=== PATIENT | female | born 1935 | race Caucasian/White ===

== ENCOUNTER 2018-09-27 15:17 | Inpatient (IN) | payer MEDICARE, OTHER ==
[~2018-09-27] VITALS: Ht 157.5 cm; Wt 75.0 kg
--- NOTE | 2018-09-27 14:50 | NUR ---
PATIENT ARRIVED TO UNIT, ACCOMPANIED BY FAMILY, PT AMBULATES IN W/C AND TRANSFERS WITH ONE-PERSON ASSIST DUE TO WEAKNESS AND UNSTEADY GAIT. PT. ALERT AND CONFUSED, PLEASANT MOOD, NO AGGRESSION NOTED, CLOTHING LABELED AND RECORDED AND PLACED IN PATIENT ROOM. PATIENT CONFUSED AND UNABLE TO ANSWER QUESTIONS APPROPRIATELY, HOWEVER PATIENT'S DAUGHTERS ARE GOOD HISTORIANS. VITAL SIGNS MEASURED FOLLOWS: T 98.1, B/P 113/55, P 99, R 18, SPO2 95%. PATIENT WEIGHED SITTING IN DESIGNATED WHEELCHAIR ON W/C SCALE, WT 164.4 LBS. PATIENT'S WRIST WATCH SENT HOME WITH FAMILY PER FAMILY'S REQUEST. PT. ASSISTED TO DAYROOM TO JOIN PEERS, NO S/S DISTRESS.
[~2018-09-27 15:17] MED LIST: ZINC-220220 MG PO
[2018-09-27] MEDS ORDERED: K-DUR20 MEQ PO (15:26)
[2018-09-27] MEDS ORDERED: PREDNISONE5 MG PO (15:26)
[2018-09-27] MEDS ORDERED: GLUCOTROL 5 MG T5 MG PO (15:29)
[2018-09-27] MEDS ORDERED: MULTI-DAY VITAM1 TAB PO (15:30)
[2018-09-27] MEDS ORDERED: ALBUTEROL SULF8.5 GM INH (15:38)
[2018-09-27] MEDS ORDERED: HYDROCODON-ACE1 EA10 PO (15:41)
[2018-09-27] MEDS ORDERED: ASCORBIC ACID500 MG PO (15:42)
[2018-09-27] MEDS ORDERED: ULTRAM50 MG PO (15:43)
[2018-09-27] MEDS ORDERED: KEPPRA500 MG PO (15:44)
[2018-09-27] MEDS ORDERED: TRAZODONE HCL150 MG PO (15:44)
[2018-09-27] MEDS ORDERED: BUPROPION HCL75 MG PO (15:46)
--- NOTE | 2018-09-27 16:30 | NUR ---
PATIENT'S DAUGHTER PHONED TO EXPRESS CONCERN THAT PATIENT HAD BEEN ON WELLBUTRIN AND IT WAS SUDDENLY DISCONTINUED UPON ADMISSION TO HOSPTIAL FOLLOWING FALL AND HEAD INJURY. DAUGHTER STATED THAT PRIOR TO PREVIOUS HOSPITALIZATION, PT WAS TAKING A LARGER DOSE THAN THE CURRENTLY PRESCRIBED DOSE OF 37.5 MG DAILY.
[2018-09-27 16:48] LABS: BASOPHILS 0.3 % (0-2); EOSINOPHILS 4.5 % (0-7); HEMATOCRIT 43.2 % (36.0-48.0); HEMOGLOBIN 14.1 g/dL (12-16); LYMPHOCYTES 20.4 % (15-50); MCH 30.9 pg (26.0-34.0); MCHC 32.6 g/dL (31.0-37.0); MCV 94.7 fL (80.0-100.0); MEAN PLATELET VOLUME 10.4 fL (7.4-10.4); MONOCYTES 6.5 % (2-11); NEUTROPHILS 68.3 % (40-80); PLATELET COUNT 198 10x3/uL (130-400); RBC 4.56 10x6/uL (4.00-5.40); RDW 13.5 % (11.5-14.5); WBC 7.7 10x3/uL (4.8-10.8)
[2018-09-27 16:56] LABS: INR 0.97 (0.85-1.17); PROTIME 12.4 SECONDS (11.6-15.0)
--- NOTE | 2018-09-27 17:28 | NUR ---
SPOKE WITH PADMINI MISA DAUGHTER IN REGARDS TO PT BEING COMBATIVE WITH STAFF AND STAFF UNABLE TO COMPLETE SKIN ASSESSEMENT AT THIS TIME. WILL CONTINUE TO TRY.
--- NOTE | 2018-09-27 17:30 | NUR ---
PATIENT QUITE CONFUSED AND VERY AGITATED. ARGUMENTATIVE WITH STAFF. DIFFICULT TO RE-DIRECT. ASSISTED TO RECLINER. TOÑO ALARM IN PLACE.
[2018-09-27 17:31] LABS: ALBUMIN 3.2 g/dL (3.4-5.0); ANION GAP 11.1 mmol/L (8-16); BILIRUBIN - TOTAL 0.26 mg/dL (0.2-1.3); CALCIUM 9.1 mg/dL (8.5-10.1); CARBAMAZEPINE (TEGRETOL) 0.2 ug/mL (4.0-12.0); CARBON DIOXIDE 35.5 mmol/L (21.0-32.0); CHOL - HDL RATIO 4.9 ratio (2.3-4.1); CREATININE - SERUM 0.8 mg/dL (0.6-1.3); LDL-HDL RATIO 3.4 ratio (1.5-3.5); POTASSIUM - SERUM 3.6 mmol/L (3.5-5.1); PROTEIN - SERUM 6.8 g/dL (6.4-8.2); THYROID STIMULATING HORMONE 1.17 uIU/mL (0.36-3.74)
--- NOTE | 2018-09-27 17:52 | NUR ---
PATIENT ASKED TO GO THE RESTROOM. STAFF MEMBER ASSISTED TO RESTROOM PATIENT THEN STATED "I DONT WANT TO GO TO THE BATHROOM" STAFF MEMBER ATTEMPTED TO ASSIST PATIENT TO STAND WHEN PATIENT ASKED FOR HELP. PATIENT REFUSED TO STAND WHEN STAFF MEMBER ATTEMPTED TO ASSIST TO STAND. STAFF MEMBER ATTEMPTED TO REDIRECT PATIENT. PATIENT STATED "I GOTTA GET OUT THIS DOOR. I'M GOING TO BUST OUT OF IT AND CALL THE LAW." PATIENT NOT ABLE TO REDIRECT X3 STAFF MEMBERS. PATIENT REFUSED TO ALLOW STAFF TO AUDIT HER SKIN UPON ADMISSION. STATING "I'M NOT GOING TO LET Y'ALL DO ANYTHING WITH ME. NOW LET ME GO" THIS NURSE WAS ABLE TO ASSESS VISIBLE SKIN. PATIENT RIGHT HAND ON THE THUMB AND POINTER FINGER IS A LARGE DIME SIZE SCAB THAT IS DARKER IN COLOR. ON TOP OF PATIENT RIGHT AND LEFT HAND IS MULTIPLE DISCOLORED AREAS. SMALL DIME RED AREAS NOTED TO LEFT AND RIGHT UPPER FOREARMS. SMALL AREA NOTED IN HAIR LINE DUE. +1 PITTING EDEMA NOTED TO BILATERAL FEET. PATIENT STATED "I DO NOT HAVE EDEMA IN MY FEET." WILL NOTIFY NEXT SHIFT OF PATIENT REFUSAL OF SKIN ASSESSMENT.
--- NOTE | 2018-09-27 18:25 | NUR ---
PATIENT HAS BEEN CONSTANTLY RUBBING THE TOP OF HER FINGERS WHILE SITTING IN THE DAYROOM. PATIENT STARTS WITH ONE FINGER ON THE RIGHT HAND AND THEN MOVES ON TO EACH FINGER UNTIL SHE REACHES THE NEXT HAND AND EACH FINGER. EACH FINGER ON EACH HAND IS RED. PT DENIES ANY PAIN TO HANDS.
--- NOTE | 2018-09-28 00:01 | NUR ---
PT IS PHYSICALLY AGGRESSIVE WITH STAFF AND PEERS. SHE GRABBED A PTS WRISTS AND REFUSED TO LET GO. PT ATTEMPTED TO POOR WATER ON STAFF WHEN TRYING TO REDIRECT. PT IS DEMANDING AND INTRUSIVE WHEN STAFF IS ASSISTING OTHER PEERS. PT ATTEMPTED TO RUN STAFF AND PEERS FEET OVER WITH WHEELCHAIR. SHE GRABBED TECHS WRIST AND REFUSED TO RELEASE HER PERCUSSION TUNER ON STAFFS HANDS. CONTINUE TO MONITOR.
[2018-09-28 05:00] VITALS: BP 123/63; BMI 30.1
[2018-09-28 05:19] VITALS: BP 123/63
[2018-09-28 07:14] LABS: RAPID PLASMA REAGIN Non Reactive (Non Reactive)
[2018-09-28 07:53] VITALS: BP 103/51
[2018-09-28 09:02] VITALS: Ht 157.5 cm; Wt 75.0 kg
--- NOTE | 2018-09-28 12:31 | NUR ---
PATIENT ALLOWED NURSE TO CHECK SKIN THIS SHIFT. 2X NURSE DID A SKIN AUDIT. THIS NURSE TOOK PATIENT TO RESTROOM. THIS NURSE NOTED A AREA INSIDE COCCYX LIGHT RED PINK AREA. AREA IS BLANCHABLE. NURSE NOTED SMALL RED AREAS AND BRUISES NOTED TO BILATERAL LEGS. PT HAS A SMALL AREA OF ECCHYMOSIS TO LOWER RIGHT LEG. NURSE NOTED SMALL RED AND PINK AREAS TO BILATERAL ARMS. PT HAS A DIME SIZE SCAB TO AREA BETWEEN THUMB AND FINGER. PATIENT IS NOT COOPERATIVE WITH SKIN AUDIT. WAS UNABLE TO COLLECT URINE DUE TO CONTAMINATION. WILL ATTEMPT AT ANOTHER TIME. PT DID HAVE A LARGE BOWEL MOVEMENT THIS SHIFT.
--- NOTE | 2018-09-28 12:53 | NUR ---
GLUCOSE LEVEL 122. NO SLIDING SCALE INSULIN GIVEN PER ORDER
--- NOTE | 2018-09-28 13:21 | NUR ---
PATIENT OFFERED SHOWER PER STARCHMAKER ON TWO SEPARATE OCCASIONS, BUT PT. REFUSED. STATED, "I DON'T NEED A SHOWER TODAY. I AM WAITING ON MY TO GET HERE."
--- NOTE | 2018-09-28 13:30 | NUR ---
PATIENT PACING ABOUT DAY ROOM IN WHEELCHAIR, PUSHING ANOTHER WHEELCHAIR AND LEANING FORWARD PUTTING WEIGHT ON THE CHAIR BEING PUSHED WHICH PRESENTS A HAZARD OF FALLING OUT OF HER CHAIR. PATIENT RE-DIRECTED TO NOT PUSH THE W/C AT WHICH TIME, PATIENT BECAME ANGRY AND TRIED TO HIT NURSE. EXTRA WHEELCHAIR REMOVED FROM THE ROOM WHICH FURTHER ANGERED PATIENT. PATIENT STATED, "I WORKED HARD ALL SUMMER TO GET THESE THINGS AND I DON'T LIKE THEM BEING TAKEN AWAY!"
--- NOTE | 2018-09-28 14:07 | NUR ---
PATIENT AGITATED. TRYING TO GET OUT OF DAY ROOM. PRN PO ATIVAN PULLED. PATIENT REFUSED TO TAKE AT THIS TIME. WILL LET PATIENT CALM DOWN AND ATTEMP AGIAN
--- NOTE | 2018-09-28 14:26 | NUR ---
PATIENT STILL REFUSING PRN PO ATIVAN. ATIVAN IM GIVEN FOR AGITATION/ANXIEITY
[2018-09-28 21:00] VITALS: BP 106/54
[2018-09-28 23:47] LABS: APPEARANCE HAZY (CLEAR); COLOR YELLOW (YELLOW); SPECIFIC GRAVITY 1.015 (1.005-1.020)
[2018-09-28 23:48] LABS: BACTERIA MANY /hpf (NONE SEEN); BILIRUBIN NEGATIVE (NEGATIVE); EPITHELIAL CELLS RARE /hpf (0-5); GLUCOSE NEGATIVE (NEGATIVE); KETONE NEGATIVE (NEGATIVE); NITRITE POSITIVE (NEGATIVE); PROTEIN NEGATIVE (NEGATIVE); RED CELLS - URINE NONE SEEN /hpf (0-5); UROBILINOGEN NORMAL (NORMAL)
--- NOTE | 2018-09-29 02:49 | NUR ---
PATIENT IS CONFUSED, DROWSY, ASSIST X 2 TO RESTROOM, CAN MAKE NEEDS KNOWN, COMPLIANT WITH MEDS. WILL FOLLOW POC
--- NOTE | 2018-09-29 09:30 | PSY ---
PATIENT NAME:NABIL KEYES MEDICAL RECORD: [id number] : 35 LOCATION:SAVANNA Estrada ADMISSION DATE: 09/27/18 ACCOUNT: [id number] PSYCHIATRIC EVALUATION DATE OF EVALUATION: 09/28/18 IDENTIFYING DATA: The patient is 83 years old and she is admitted to the hospital on a voluntary basis. CHIEF COMPLAINT: Confusion and agitation. HISTORY OF PRESENT ILLNESS: The patient has been at a jail in [place]. She has been there because she had a recent fall with a subdural hematoma and she was receiving physical therapy. She is pretty unsteady in her gait and they were trying to work on this, but she has been very confused and agitated and they referred her here for treatment. The patient has little recognition or understanding of the situation. She is polite and cooperative and pleasant, but it is clear she is not understanding and is not able to follow much of what I am telling her. She denies that she would want to hurt herself or others. She denies any overt psychotic symptoms. 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 PAST PSYCHIATRIC HISTORY: Significant for dementia with an established diagnosis of Alzheimer disease. She has no history of psychiatric illness prior to developing the dementia. FAMILY HISTORY: Significant for cardiovascular disease. ALLERGIES: No known drug allergies. CURRENT MEDICATIONS: Include prednisone, potassium, Glucotrol, albuterol inhaler, hydrocodone, Ultram, Desyrel, and Wellbutrin. SOCIAL HISTORY: The patient is . She has no history of drug or alcohol use. She has 5 adult children who live in this area and rotate caring for her. She apparently worked for [employer] in a [place] area and is retired from [employer] and retired somewhat prematurely because she had developed some repetitive use injuries. MENTAL STATUS EXAMINATION: The patient is awake, alert, and oriented to person only. Her mood is flat. Her affect is constricted. Thought processes are circumstantial. Memory, concentration, and abstraction abilities are moderately impaired and she denies that she would actively seek to harm herself or others as well as psychotic symptoms. ASSETS: Supportive family members. LIABILITIES: Limited insight. 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 AXIS II: None. AXIS III: Hypertension, congestive heart failure, diabetes, osteoarthritis, osteoporosis, pressure ulcer, hyperlipidemia, impaired mobility, subdural hematoma, traumatic brain injury, dyspnea, pulmonary fibrosis. AXIS IV: Severe. AXIS V: Global assessment of functioning is 25. PLAN: At this time, the patient is admitted to the hospital secondary to confused agitated behavior associated with a dementing illness. She will be treated with both memory enhancing and mood stabilizing medications. Her long-term prognosis is guarded. TRANSINT:[id number] Voice Confirmation ID: [id number] DOCUMENT ID: [id number] AUBREY RICO MD at 0930 CC: [id number] DICTATION DATE: 09/28/181701 TILE MECHANIC HELPER: 09/28/182041 ADM IN [place] [id number] [place] [id number]
--- NOTE | 2018-09-29 10:14 | NUR ---
PATIENT SITTING IN RECLINER CHAIR. CHAIR ALARM IN PLACE AND ACTIVE. RESP EVEN AND NONLABORED. PT DENIES ANY PAIN. ABLE TO MAKE NEEDS DONE. PT COMPLIANT WITH MEDS, ASSESSMENT AND VITAL SIGNS. NO ACUTE DISTRESS NOTED. PT IS ORIENTED TO SELF. CONFUSION NOTED. WILL CONT PLAN OF CARE.
[2018-09-29 13:07] VITALS: BP 113/51
--- NOTE | 2018-09-29 16:50 | NUR ---
PATIENT FAMILY HERE VISITING. DAUGHTER ASKED IF PATIENT HAD ANY PAIN MEDICATION FOR BREAKTHROUGH PAIN STATING SHE WAS FIGDTING IN CHAIR AND C/O HER BOTTOM WAS HURTING. PT DID NOT C/O OF PAIN TO NURSES. OTHER NURSE GOT PATIENT MEDICATION FOR PAIN. DAUGHTER ASKED ABOUT SKIN AUDIT. NURSE VERBALLY GAVE FINDINGS TO DAUGHTER AND SHE STATED "OH.. WELL SHE C/O OF PAIN TO HER BOTTOM."
--- NOTE | 2018-09-29 20:30 | NUR ---
REC'D PATIENT IN THE DAYROOM MOBILE IN A WHELLCHAIR. ORIENTED TO SELF ONLY. DELUSIONAL RELATING "THERE'S PEOPLE THAT WOULD LIKE TO GET ME THERE. BEHIND BARS." TRIES TO GET OUT OF THE DOOR INTO THE DINING ROOM. ADMINISTER MEDS AND REORIENT NEEDED. MED COMPLIANT. POOR REORIENTATION AND REMAINS WITH DELUSIONAL THOUGHTS. CONTINUE POC AND PROVIDE SAFE ENVIROMENT.
[2018-09-30 03:11] VITALS: BP 129/72
[2018-09-30 10:31] VITALS: BP 135/57
--- NOTE | 2018-09-30 10:49 | PN ---
PATIENT:NABIL KEYES MEDICAL RECORD: [id number] LOCATION:SAVANNA Fitzpatrick ADMISSION DATE: 09/27/18 PROGRESS NOTE DATE OF SERVICE: 09/29/2018 SUBJECTIVE: The patient's case was discussed with staff. She has no new complaint. OBJECTIVE: The patient is eating marginally well. She did sleep well last night. She has almost no insight about her situation and virtually no short-term memory. She has not been aggressive. ASSESSMENT: No change in diagnoses. PLAN: I have reviewed current medicines and we will maintain them. Her long-term prognosis is guarded. TRANSINT:[id number] Voice Confirmation ID: [id number] DOCUMENT ID: [id number] AUBREY RICO MD at 1049 CC: [id number] DICTATION DATE: 09/29/18 1130 PAINTER BARREL: 09/29/18 1359 ADM IN [place] [id number] [place] [id number]
--- NOTE | 2018-09-30 15:15 | NUR ---
THIS NURSE ASSISTED PATIENT INTO ANOTHER CHAIR TO RELIEVE PRESSURE TO BOTTOM AREA. PT ASSISTS WITH TRANSFER. PT IS COMPLIANT WITH MEDS, VITAL SIGNS. NO ACUTE DISTRESS NOTED. PT IS ORIENTED TO SELF AND CONFUSED. CHAIR ALARM IN PLACE AND ACTIVE. WILL CONT PLAN OF CARE.
[2018-09-30 20:00] VITALS: BP 102/31
--- NOTE | 2018-10-01 00:04 | NUR ---
RECEIVED IN DAYROOM. SITTING IN A WHEELCHAIR. CALM AND COOPERATIVE WITH CARE AND ASSESSMENT. CALM AND COOPERATIVE WITH CARE AND ASSESSMENT. REDIRECT AND REORIENT NEEDED. RESTING IN BED WITH EYES CLOSED AT THIS TIME. CONTINUE PLAN OF CARE
[2018-10-01 07:00] VITALS: BP 105/56
--- NOTE | 2018-10-01 14:50 | NUR ---
PATIENT IS AWAKE AND ALERT, BUT CONFUSED. CALM AND COOPERATIVE WITH CARE AND ASSESSMENT. MEDICATION COMPLIANT. REDIRECT AND REORIENT NEEDED. WILL CONTINUE POC.
--- NOTE | 2018-10-01 15:05 | NUR ---
Nutrition Follow-up: Diet: Diabetic PO intake: ~71% average x last 6 meals Labs reviewed Significant meds: glipizide, MVI, prednisone, KCl +BM Wt: 164# (09/30/18) - stable Per MD note pressure ulcer to coccyx. Will add Deshawn with breakfast. RD Following
--- NOTE | 2018-10-01 16:00 | NUR ---
PATIENT BECAME AGITATED AND AGGRESSIVE WITH STAFF AND TAKING TELEPHONE AND TRIED TO USE IT. DIFFICULT TO REDIRECT. ATIVAN 0.5 MG IM GIVEN IN LEFT DELTOID.
--- NOTE | 2018-10-01 16:47 | PN ---
PATIENT:NABIL KEYES MEDICAL RECORD: [id number] LOCATION:SAVANNA Fitzpatrick ADMISSION DATE: 09/27/18 PROGRESS NOTE DATE OF SERVICE: 09/30/2018 SUBJECTIVE: The patient's case was discussed with staff. She has no new complaint. OBJECTIVE: The patient denies intent to harm herself or others. She is tolerating her medicines well. Unfortunately, she is extremely confused. The behavior problems that brought her to us, which were mostly argumentative in nature, have not materialized and I suspect it is largely related to the fact that she is in a structured secured environment. TRANSINT:[id number] Voice Confirmation ID: [id number] DOCUMENT ID: [id number] AUBREY RICO MD at 1647 CC: [id number] DICTATION DATE: 09/30/18 1202 DEPLOYMENT MANAGER: 09/30/18 1519 ADM IN [place] [id number] [place] [id number]
[2018-10-01 20:03] VITALS: BP 134/67
--- NOTE | 2018-10-01 21:24 | NUR ---
B.) PT IS ALERT AND ORIENTED TO SELF AND PLACE. SHE IS DEMANDING AND INTRUSIVE AT TIMES. PT IS UNSTEADY ON HER FEET. USING A WHEELCHAIR FOR ASSISTANCE. I.)PROVIDED PM MEDICATIONS. R.) COMPLIANT WITH ALL MEDICATIONS P.) CONTINUE PLAN OF CARE.
[2018-10-02 07:00] VITALS: BP 119/48
--- NOTE | 2018-10-02 14:57 | PN ---
PATIENT:NABIL KEYES MEDICAL RECORD: [id number] LOCATION:SAVANNA Fitzpartick ADMISSION DATE: 09/27/18 PROGRESS NOTE DATE OF SERVICE: 10/01/2018 SUBJECTIVE: The patient's case was discussed with staff. She has no new complaint. OBJECTIVE: The patient is in good behavioral control with limited insight about her condition. She is tolerating her medicines well. Unfortunately, she had some sundowning behavior this afternoon and became quite angry with one of the nurses. It was over nothing apparent. The patient did not have to be given p.r.n. medication, but she was indeed quite agitated. ASSESSMENT: No change in diagnoses. PLAN: I am going to start the patient on Aricept at a dose of 5 mg at bedtime. Her long-term prognosis is guarded. TRANSINT:[id number] Voice Confirmation ID: [id number] DOCUMENT ID: [id number] AUBREY RICO MD at 1457 CC: [id number] DICTATION DATE: 10/01/18 170 GUEST SERVICE SUPERVISOR: 10/01/18 1929 ADM IN [facility] [address] [place] [address]
--- NOTE | 2018-10-02 16:20 | NUR ---
UPDATED FAMILY ON PT'S MEDICATIONS AND BEHAVIORS. VERBALIZED UNDERSTANDING.
--- NOTE | 2018-10-02 20:00 | NUR ---
REC'D SITTING IN WHEELCHAIR. MOBILE ON UNIT WITH WHEELCHAIR. ORIENTED TO SELF AND DATE. COOPERATIVE WITH VS. POOR INTERACTION WITH PEERS. DELUSIONAL BELIEVING SHE HAS BEEN PLAYING BALL WITH THE LITTLE BOYS. ADMINISTER MEDS PER ORDERS Q SHIFT AND MONITOR COMPLIANCE. USE REALITY BASED INFORMATION FOR REDIRECTON OF DELUSIONAL THOUGHTS. MED COMPLIANT. POOR RESPONSE TO REDIRECTION OF DELUSIONAL THOUGHTS DUE TO IMPAIRED ABILTIY TO SEPARATE REALITY FROM FANTASY. CONTINUE POC AND PROVIDE SAFE ENVIRONMENT.
[2018-10-02 21:25] VITALS: BP 130/80
[2018-10-03 10:13] VITALS: BP 98/54
--- NOTE | 2018-10-03 12:51 | NUR ---
RECEIVED PT IN DAYROOM. ALERT, CONFUSED, RAMBLES AIMLESLY IN W/C OFTEN RUNNING IN TO OTHER PATIENTS. MEDS ADMIN PER ORDERS WITH COMPLETE MED COMPLIANCE NOTED. NO AGGRESSION NOTED, HOWEVER IS ARGUMENTATIVE AT TIMES. CONT POC DIRECTED.
--- NOTE | 2018-10-03 14:55 | PN ---
PATIENT:NABIL KEYES MEDICAL RECORD: [id number] LOCATION:SAVANNA Fitzpatrick ADMISSION DATE: 09/27/18 PROGRESS NOTE DATE OF SERVICE: 10/02/2018 SUBJECTIVE: The patient's case was discussed with staff. She has no new complaint. OBJECTIVE: The patient is quite confused and only oriented to person today. She was agitated earlier today, combative with staff, and did receive p.r.n. Ativan. ASSESSMENT: No change in diagnoses. PLAN: I am going to treat the patient with low dose of Klonopin. Her long-term prognosis is guarded. TRANSINT:[id number] Voice Confirmation ID: [id number] DOCUMENT ID: [id number] AUBREY RICO MD at 1455 CC: [id number] DICTATION DATE: 10/02/18 1509 RADIO STATION AUDIO ENGINEER: 10/02/18 1613 ADM IN [facility] [address] [place] [address]
--- NOTE | 2018-10-03 16:30 | NUR ---
PATIENT ARGUMENTATIVE, REFUSING FSBS
--- NOTE | 2018-10-03 20:30 | NUR ---
RECEIVED PATIENT SITTING IN THE DAYROOM. ASKING FOR HER MEDICATIONS. COOPERATIVE WITH STAFF. TRANSFERRED SELF TO WHEELCHAIR AND RELATES IS READY FOR BED. NO INSIGHT INTO THE REASON FOR ADMISSION. MINIMAL INTERACTION WITH PEERS. ADMINISTER MEDS PER ORDERS Q SHIFT AND MONITOR COMPLIANCE. ENCOURAGE INTERACTION WITH PEERS. MED COMPLIANT. POOR INTERACTION WITH PEERS. PATIENT BECOMES IMPATIENT AND ARGUMENTATIVE WHEN INTERACTING WITH OTHERS.
[2018-10-03 22:52] VITALS: BP 130/70
[2018-10-04 09:00] VITALS: BP 91/59
--- NOTE | 2018-10-04 11:09 | NUR ---
NUTRITION F/U TOLERATING DIABETIC DIET WITH 50 TO 100% INTAKE RECENT MEALS. WT STABLE. WILL CONTINUE TO PROVIDE DIET, MONITOR PO INTAKE AND WT. RD FOLLOWING
--- NOTE | 2018-10-04 13:17 | PN ---
PATIENT:NABIL KEYES MEDICAL RECORD: [id number] LOCATION:Marco AntonioRAMONAJosh Marco AntonioNaheedNatali ADMISSION DATE: 09/27/18 PROGRESS NOTE DATE OF SERVICE: 10/03/2018 SUBJECTIVE: The patient's case was discussed with staff. She has no new complaint. OBJECTIVE: The patient is in good behavioral control with limited insight about her condition. She is tolerating her medicines well. She was tearful and labile yesterday. I have started her on a low dose of Klonopin, which hopefully will show some significant benefit soon. TRANSINT:[id number] Voice Confirmation ID: [id number] DOCUMENT ID: [id number] AUBREY RICO MD at 1317 CC: [id number] DICTATION DATE: 10/03/18 1519 FINGERNAIL FORMER: 10/03/18 1746 ADM IN [facility] [address] [place] [address]
--- NOTE | 2018-10-04 16:19 | NUR ---
The patient's daughter came to visit and she did bring a 3.3 oz bottle of Olaplex a leave in conditioner, she wants her Mom to have it put on her daily. Will keep it in her cassette at the nurses station.
--- NOTE | 2018-10-04 19:25 | NUR ---
REC'D SITTING IN WHEELCHAIR IN DAYROOM. TRANSFERRED SELF TO ANOTHER CHAIR. COOPERATIVE WITH ASSESSMENT. ORIENTED TO SELF ONLY. DELUSIONAL RELATING "HE AND HIS KIDS TRYING TO LIVE IN HIS HOUSE. MOVED TO [address] MY AND I AND THE REST OF THE KIDS TRYING TO LIVE [place]." ADMINISTER MEDS PER ORDERS Q SHIFT AND MONITOR COMPLIANCE. REORIENT Q SHIFT AND NEEDED. MED COMPLIANT. DIFFICULT TO REORIENT DUE TO IMPAIRED ABILTY TO SEPARATE REALITY FROM FANTSY. CONTINUE POC AND PROVIDE SAFE ENVUIRONMENT.
[2018-10-04 19:31] VITALS: BP 140/70
[2018-10-05 09:56] VITALS: BP 115/57
--- NOTE | 2018-10-05 11:03 | NUR ---
B) The patient is awake and alert, she is confused, she has poor insight into her situation. She has not shown any aggression this am. I) Provide prescribed meds. R) The patient is compliant with meds. P) Continue POC.
--- NOTE | 2018-10-05 15:42 | PN ---
PATIENT:NABIL KEYES MEDICAL RECORD: [id number] LOCATION:SAVANNA Fitzpatrick ADMISSION DATE: 09/27/18 PROGRESS NOTE DATE OF SERVICE: 10/04/2018 SUBJECTIVE: The patient's case was discussed with staff. She has no new complaint. OBJECTIVE: The patient is in good behavioral control. She has limited insight about her condition. She is eating adequately. She is sleeping well. ASSESSMENT: No change in diagnoses. PLAN: Current medicines will be maintained. I anticipate she can be transitioned out of the hospital soon. TRANSINT:[id number] Voice Confirmation ID: [id number] DOCUMENT ID: [id number] AUBREY RICO MD at 1542 CC: [id number] DICTATION DATE: 10/04/18 1445 ONLINE MARKETING ANALYST: 10/04/18 1700 ADM IN [place] [id number] [place] [address]
[2018-10-05 20:00] VITALS: BP 127/58
--- NOTE | 2018-10-05 22:13 | NUR ---
B.) PT IS ALERT AND ORIENTED TO SELF ONLY. SHE USES A WHEEL CHAIR TO AMBULATE SINCE HER GAIT IS VERY UNSTEADY. SHE WAS NOT COMBATITIVE OR ARGUMENATIVE THIS EVENING. SHE HAS A REDDEND AREA TO THE LEFT OF HER COCCYX. I.) APPLIED SHIRA'S PASTE TO HER REDDEND AREA. R.) PT TOLERATE WELL AND ALLOWED US TO PLACE IT WITHOUT BEING COMBATITIVE. P.) CONTINUE PLAN OF CARE
[2018-10-06 10:51] VITALS: BP 121/48
--- NOTE | 2018-10-06 12:25 | PN ---
PATIENT:NABIL KEYES MEDICAL RECORD: [id number] LOCATION:SAVANNA Fitzpatrick ADMISSION DATE: 09/27/18 PROGRESS NOTE DATE OF SERVICE: 10/05/2018 SUBJECTIVE: The patient's case was discussed with staff. She has no new complaint. OBJECTIVE: The patient is sleeping and eating well. She has not been aggressive today. She has been started on a low dose of Klonopin, which seems to have helped some of her agitation. ASSESSMENT: No change in diagnoses. PLAN: Current medicines have been reviewed. Her long-term prognosis is guarded. I am going to start her on Aricept for her memory impairment. TRANSINT:[id number] Voice Confirmation ID: [id number] DOCUMENT ID: [id number] AUBREY RICO MD at 1225 CC: [id number] DICTATION DATE: 10/05/18 1556 GEOGRAPHIC INFORMATION SYSTEMS ANALYST: 10/05/18 2212 ADM IN [place] [id number] [place] [address]
--- NOTE | 2018-10-06 13:29 | NUR ---
YELLING ANGRILY AT [facility], EXIT-SEEKING, BECOMES AGITATED WITH RE-DIRECTION.
[2018-10-06 20:00] VITALS: BP 107/67
--- NOTE | 2018-10-07 03:32 | NUR ---
B) Patient is alert and oriented to person and place, calm and cooperative this shift, I) Administered scheduled medictions as ordered, monitored for safety and for needs, R) Medication compliant, follows unit milieu P) Continue plan of care.
[2018-10-07 07:00] VITALS: BP 131/46
--- NOTE | 2018-10-07 12:29 | PN ---
PATIENT:NABIL KEYES MEDICAL RECORD: [id number] LOCATION:SAVANNA Fitzpatrick ADMISSION DATE: 09/27/18 PROGRESS NOTE DATE OF SERVICE: 10/06/2018 SUBJECTIVE: The patient's case was discussed with staff. She has no new complaint. OBJECTIVE: The patient is in good behavioral control with poor insight about her condition. She tolerates her medicines well. ASSESSMENT: No change in diagnoses. PLAN: Brief supportive and educational interventions were made. Long-term prognosis is guarded. TRANSINT:[id number] Voice Confirmation ID: [id number] DOCUMENT ID: [id number] AUBREY RICO MD at 1229 CC: [id number] DICTATION DATE: 10/06/18 1231 DISPATCHER RELAY: 10/06/18 1450 ADM IN [place] [id number] [place] [address]
--- NOTE | 2018-10-07 16:22 | NUR ---
IS ORIENTED TO SELF AND PLACE.COMPLIANT WITH STAFF AND MEDS.PROPELLS SELF IN WHEELCHAIR.ARGUMENTIVE AT TIMES.WILL CONTINUE WITH PLAN OF CARE,MONITOR FOR CHANGES AND SAFETY.
[2018-10-07 20:15] VITALS: BP 112/73
--- NOTE | 2018-10-07 23:04 | NUR ---
B.) PT IS ALERT AND ORIENTED TO SELF ONLY. SHE RECIEVED IN HER WHEEL CHAIR AND IS PLEASANT. SHE HAS POOR INSIGHT TO HER SITUATION. SHE CAN MAKE HER NEEDS KNOWN. I.) REDIRECT AND REORIENT OFTEN. PROVIDED PM MEDICATIONS R.) REMAINS CONFUSED DESPITE REORIENTATION. COMPLIANT WITH ALL MEDICATIONS. P.) CONTINUE PLAN OF CARE
[2018-10-08 07:00] VITALS: BP 121/59
--- NOTE | 2018-10-08 14:28 | PN ---
PATIENT:NABIL KEYES MEDICAL RECORD: [id number] LOCATION:SAVANNA Fitzpatrick ADMISSION DATE: 09/27/18 PROGRESS NOTE DATE OF SERVICE: 10/07/2018 SUBJECTIVE: The patient's case was discussed with staff. She has no new complaint. OBJECTIVE: The patient is eating and sleeping well. She is seriously confused with almost no insight about her condition. ASSESSMENT: No change in diagnoses. PLAN: The patient clearly is in need of [id number] supervision. Her long-term prognosis is guarded. TRANSINT:[id number] Voice Confirmation ID: [id number] DOCUMENT ID: [id number] AUBREY RICO MD at 1428 CC: [id number] DICTATION DATE: 10/07/18 1239 DEMOLITION EXPERT: 10/07/18 1505 ADM IN [place] [id number] [place] [address]
--- NOTE | 2018-10-08 14:41 | NUR ---
PT BECOMING INCREASINGLY AGITATED. WILL MONITOR FOR FURTHER ESCALATION.
--- NOTE | 2018-10-08 15:03 | NUR ---
RECEIVED PATIENT IN DINING ROOM FOR B'FAST, ALERT, CONFUSED, NO AGGRESSION NOTED. MEDS ADMIN PER ORDERS WITH COMPLETE MED COMPLIANCE NOTED. CONT POC DIRECTED.
--- NOTE | 2018-10-08 19:30 | NUR ---
REC'D PATIENT IN DAYROOM ROLLING AROUND IN HER WHEELCHAIR. BUMPS INTO OTHER PATIENTS AND BECOMES ARGUMENTATIVE WITH STAFF. EPISODE OF TEARFULNESS WHEN TALKING WITH NURSE HOWEVER COULD NOT TELL NURSE WHAT ACTUALLY WAS BOTHERING HER.BEHAVIOR LABILE TODAY. ADMINISTER MEDS PER ORDERS Q SHIFT AND MONITOR COMPLIANCE. REDIRECT FOR INTRUSSIVE BEHAVIOR. MED COMPLIANT. POOR REDIRECTION PATIENT BECOMES ARGUMENTATIVE AND DOES NOT ADHERE UNIT PROTOCOLS. CONTINUE POC AND PROVIDE SAFE ENVIRONMENT.
[2018-10-08 23:46] VITALS: BP 140/70
[2018-10-09 09:00] VITALS: BP 134/68
--- NOTE | 2018-10-09 15:33 | PN ---
PATIENT:NABIL KEYES MEDICAL RECORD: [id number] LOCATION:[facility] BernardNaheedNatali ADMISSION DATE: 09/27/18 PROGRESS NOTE DATE OF SERVICE: 10/08/2018 SUBJECTIVE: The patient's case was discussed with staff. She has no new complaint. OBJECTIVE: The patient has been quite anxious and at times difficult to redirect. She has been started on Klonopin, which she has not had a full opportunity to become effective. I am going to start her on a low dose of Celexa for its antidepressant effect. TRANSINT:[id number] Voice Confirmation ID: [id number] DOCUMENT ID: [id number] AUBREY RICO MD at 1533 CC: [id number] DICTATION DATE: 10/08/18 1518 LINEN ATTENDANT: 10/08/18 1558 ADM IN [facility] [address] [place] [address]
--- NOTE | 2018-10-09 18:52 | NUR ---
ORIENTED TO SELF ONLY.COMPLIANT WITH STAFF AND MEDS.ARGUMENTIVE WITH STAFF AT TIMES WHEN ATTEMPTING TO GET OUT OF CHAIR WITHOUT ASSIST.WILL CONTINUE WITH CURRENT PLAN OF CARE,MONITOR FOR SAFETY AND CHANGES.
[2018-10-09 20:31] VITALS: BP 146/65
--- NOTE | 2018-10-10 01:15 | NUR ---
B) Patient is alert and oriented self, bossy and intrusive with staff and other patients, exit seeking and wandering I) Administered scheduled medications as ordered, redirected as needed, R) Medication compliant, demanding and intrusive, P) Continue plan of care.
[2018-10-10 08:38] VITALS: BP 135/59
--- NOTE | 2018-10-10 11:35 | PN ---
PATIENT:NABIL KEYES MEDICAL RECORD: [id number] LOCATION:SAVANNA Fitzpatrick ADMISSION DATE: 09/27/18 PROGRESS NOTE DATE OF SERVICE: 10/09/2018 SUBJECTIVE: The patient's case was discussed with staff. She has no new complaint. OBJECTIVE: The patient is in good behavioral control. She has poor insight about her condition. She tolerates her medicines well. ASSESSMENT: No change in diagnoses. PLAN: I anticipate the patient can be transitioned out of the hospital soon. She is severely impaired cognitively. This is not a new process. She is definitely in need of 62-xece-k-day supervision and the family would like her in a detention, but they are unhappy with the detention she comes to us from and are asking that we look for another one. I would anticipate that if this level of improvement continues, she can reasonably be transitioned out of the hospital soon. TRANSINT:[id number] Voice Confirmation ID: [id number] DOCUMENT ID: [id number] AUBREY RICO MD at 1135 CC: [id number] DICTATION DATE: 10/09/18 1607 HOME SALES SERVICE PROFESSIONAL: 10/09/18 1643 ADM IN [facility] [address] [place] [address]
--- NOTE | 2018-10-10 14:24 | NUR ---
HALDOL 2 MG IM GIVEN IN LEFT DELTOID FOR ANXIETY, HIT STAFF AND ATTEMPTED TO BITE STAFF.
--- NOTE | 2018-10-10 16:38 | NUR ---
PATIENT IS ALERT TO PERSON, WITH CONFUSION NOTED. CALM AND COOPERATIVE WITH CARE AND ASSESSMENT. COMPLIANT WITH MEDICATIONS. ATTEMPTS TO GET UP WITHOUT ASSISTANCE. SHE IS VERY ARGUMENTATIVE. MONITOR FOR CHANGES AND SAFETY.
[2018-10-10 20:00] VITALS: BP 95/45
--- NOTE | 2018-10-10 21:05 | NUR ---
RECEIVED IN PATIENT ROOM. SITTING UP IN BED. CALM AND COOPERATIVE WITH CARE AND ASSESSMENT. NO ARGUMENTATIVE BEHAVIORS. REDIRECT AND REORIENT NEEDED. RESTING IN BED WITH EYES CLOSED AT THIS TIME. CONTINUE PLAN OF CARE.
--- NOTE | 2018-10-11 09:00 | NUR ---
PATIENT SITTING IN WHEELCHAIR WITH EYES OPEN. RESP EVEN AND NONLABORED. NO ACUTE DISTRESS NOTED. PT COMPLIANT WITH MEDS, ASSESSMENT AND VITALS. PT ASSIST WITH TRANSFERS. CHAIR ALARM IN PLACE AND ACTIVE. NO BEHAVIORS NOTED FROM PREVIOUS SHIFT. WILL CONT PLAN OF CARE.
--- NOTE | 2018-10-11 10:08 | PN ---
PATIENT:NABIL KEYES MEDICAL RECORD: [id number] LOCATION:SAVANNA Fitzpatrick ADMISSION DATE: 09/27/18 PROGRESS NOTE DATE OF SERVICE: 10/10/2018 SUBJECTIVE: The patient's case was discussed with staff. She has no new complaint. OBJECTIVE: The patient is in good behavioral control with limited insight about her condition. She does tolerate her medicines well. ASSESSMENT: No change in diagnoses. PLAN: Brief supportive and educational interventions were made. Long-term prognosis is guarded. TRANSINT:[id number] Voice Confirmation ID: [id number] DOCUMENT ID: [id number] AUBREY RICO MD at 1008 CC: [id number] DICTATION DATE: 10/10/18 1241 CARBONATOR: 10/10/18 1248 ADM IN [place] [id number]
[2018-10-11 10:46] VITALS: BP 127/64
--- NOTE | 2018-10-11 10:57 | NUR ---
Team Treatment Review: Diet: Mec Soft/thin liquids PO Intake: 81% per 8 meals Wt: 164lbs 09/30; 166lbs 10/07 BM: x 1 on 10/11 Meds: KCl, MVI, Vit C/Ferrous Sulfate/Folic Acid Labs: Chol-246(H), LDL-170(H) Pressure Ulcer on Coxxyx noted Goals: Wound healing Continue PO intake >/= 75% BM q 3 days Continue to tolerate [facility] Soft diet Clinical Dietitian Following
[2018-10-11 20:00] VITALS: BP 130/55
--- NOTE | 2018-10-11 22:00 | NUR ---
B.) PT IS ALERT AND ORIENTED TO SELF ONLY. SHE IS PLEASANT WITH STAFF AND PEERS. I.) PROVIDED PM MEDICATIONS. R.) COMPLIANT WITH ALL MEDICATIONS. P.) CONTINUE PLAN OF CARE
--- NOTE | 2018-10-12 08:30 | NUR ---
REC'D PT SITTING IN CHAIR WITH EYES OPEN. RESP EVEN AND NONLABORED. NO ACUTE DISTRESS NOTED. ORIENTED TO SELF ONLY AND CONFUSION NOTED. NO BEHAVIORS NOTED FROM PREVIOUS SHIFT. PT IS FRIENDLY WITH STAFF AND PEERS. ASSISTS WITH TRANSFERS. CHAIR ALARM IN PLACE AND ACTIVE. PT IS COMPLIANT WITH MEDS, ASSESSMENTS AND VITALS. WILL CONT PLAN OF CARE.
[2018-10-12 09:17] VITALS: BP 136/48
--- NOTE | 2018-10-12 19:00 | NUR ---
REC'D SITTING IN DAYROOM. INTERACTIING WITH STAFF. RELATED IS HOSPITALIZED DUE TO "I WENT CRAZY I GUESS. DEMONS WERE AFTER ME." DEMONSTRATED HOW HE WAS COVERING HIS FACE ADN FLINGING HIS ARMS. RELATED "I HOPE I DIDN'T HURT ANYBODY." THANKS THE STAFF RELATING HOW MUCH HE HAS BEEN HELPED SINCE BEING HERE AND HOPEFULLY HIS PLAN IS TO GO TO [place]. ADMINISTER MEDS PER ORDERS Q SHIFT AND MONITOR COMPLIANCE. ENCOURAGE INTERACTION WITH PEERS. MED COMPLIANT. DOES NOT INTERACT WITH PEERS HOWEVER IS APPROPRIATE WHEN APPROACHED BY STAFF. CONTINUE POC AND PROVIDE SAFE ENVIRONMENT.
--- NOTE | 2018-10-12 19:20 | NUR ---
REC'D SITTING IN DAYROOM. ORIENTED TO SELF AND HOSPITAL. KEEPS TRYING TO STAND UNASSISTED. POOR INTERACTION WITH PEERS. COOPERATIVE WITH ASSESSMENT. ADMINISTER MEDS PER ORDERS Q SHIFT AND MONITOR COMPLIANCE. REDIRECT FOR TRYING TO GET UP UNASSISTED. MED COMPLIANT. POOR REDIRECTION AEB PATIENT CONTINUES TO STAND UNASSISTED SETTING OFF CHAIR ALARM REQUIRING FREQUENT REINFORCEMENT TO ASK FOR ASSISTANCE. CONTINUE POC AND PROVIDE SAFE ENVIRONMENT.
[2018-10-12 20:41] VITALS: BP 138/61
--- NOTE | 2018-10-13 07:38 | NUR ---
REC'D PATIENT LAYING IN BED WITH EYES CLOSED. RESP EVEN AND NONLABORED. NO ACUTE DISTRESS NOTED. PATIENT SLEPT 8 HOURS. TIRE MOUNTER REPORTED NO BEHAVIORS. PT IS COMPLIANT WITH ASSESSMENT, VITALS AND MEDICAITONS. ALARM IN PLACE AND ACTIVE. PT IS ALERT TO SELF ONLY WITH CONFUSION NOTED. WILL CONT PLAN OF CARE.
[2018-10-13 08:15] VITALS: BP 153/74
[2018-10-13 09:20] VITALS: BP 153/74
--- NOTE | 2018-10-13 12:39 | PN ---
PATIENT:NABIL KEYES MEDICAL RECORD: [id number] LOCATION:SAVANNA BernardNaheedNatali ADMISSION DATE: 09/27/18 PROGRESS NOTE DATE OF SERVICE: 10/12/2018 SUBJECTIVE: The patient's case was discussed with staff. She has no new complaint. OBJECTIVE: The patient is in good behavioral control. She has poor insight about her situation. ASSESSMENT: No change in diagnoses. PLAN: Current medicines have been reviewed and will be maintained. Brief supportive and educational interventions were made. TRANSINT:[id number] Voice Confirmation ID: [id number] DOCUMENT ID: [id number] AUBREY RICO MD at 1239 CC: [id number] DICTATION DATE: 10/12/18 180 STALLION KEEPER: 10/12/18 1821 ADM IN [place] [id number] [place] [id number]
--- NOTE | 2018-10-13 12:39 | PN ---
PATIENT:NABIL KEYES MEDICAL RECORD: [id number] LOCATION:SAVANNA Fitzpatrick ADMISSION DATE: 09/27/18 PROGRESS NOTE DATE OF SERVICE: 10/11/2018 SUBJECTIVE: The patient's case was discussed with staff. She has no new complaint. OBJECTIVE: The patient has been disorganized and at times quite agitated. She has almost no insight about her situation. ASSESSMENT: No change in diagnoses. PLAN: Current medicines have been reviewed and will be maintained. Her long-term prognosis is guarded. TRANSINT:[id number] Voice Confirmation ID: [id number] DOCUMENT ID: [id number] AUBREY RICO MD at 1239 CC: [id number] DICTATION DATE: 10/11/18 1019 FREIGHT CALLER: 10/11/18 1025 ADM IN [place] [id number] [place] [address]
[2018-10-13 13:02] VITALS: BP 152/56
--- NOTE | 2018-10-13 13:12 | NUR ---
NURSE REPORTED PATIENT SLID DOWN THE COUNTER ONTO THE FLOOR. 3X STAFF ASSISTED BACK INTO CHAIR. Tg HOWELL HERE TO ASSESS PATIENT. PT C/O OF PAIN TO THE RIGHT SHOULDER. X-RAY ORDERED. YARN SIZER NOTIFIED. ATTEMPTED TO CONTACT PADMINI ARREDONDO AT [phone] AND OSMAN MENDEZ AT [phone]. BOTH NUMBERS ARE DISCONNECTED AT THIS TIME. NO OTHER CONTACT INFORMATION AVALIABLE. VITALS SIGNS: B/P: 152/56, P: 91, R: 18 AND O2: 96% ON ROOM AIR. CHAIR ALARM IN PLACE AND ACTIVE. WILL CONT TO MONITOR.
[2018-10-13 20:36] VITALS: BP 155/60
--- NOTE | 2018-10-13 20:43 | NUR ---
PT. IS CONFUSED, CAN MAKE NEEDS KNOWN, COMPLIANT WITH MEDS. NO INSIGHT TO SITUATION. WILL FOLLOW POC
[2018-10-14 08:00] VITALS: BP 127/85
--- NOTE | 2018-10-14 11:14 | PN ---
PATIENT:NABIL KEYES MEDICAL RECORD: [id number] LOCATION:SAVANNA Fitzpatrick ADMISSION DATE: 09/27/18 PROGRESS NOTE DATE OF SERVICE: 10/13/2018 SUBJECTIVE: The patient's case was discussed with staff. She has no new complaint. OBJECTIVE: The patient is much more euthymic and appropriate, although she is still severely impaired cognitively. She is asking about a bus schedule, so that she can take the [employer] to [place]. ASSESSMENT: No change in diagnoses. PLAN: Current medicines have been reviewed and will be maintained. Long-term prognosis is guarded. TRANSINT:[id number] Voice Confirmation ID: [id number] DOCUMENT ID: [id number] AUBREY RICO MD at 1114 CC: [id number] DICTATION DATE: 10/13/18 1244 LAWN CARETAKER: 10/13/18 1251 ADM IN [place] [id number] [place] [id number]
--- NOTE | 2018-10-14 16:33 | NUR ---
NURSE TALKED WITH FAMILY OSMAN AND GELACIO. INFORMED OF PATIENT SLIDING DOWN COUNTER. REPORTED NO INJURY TO FAMILY. CONTACT INFORMATION IN COMPUTER WAS INCORRECT. NURSE GOT UPDATED INFORMATION AND PHONE NUMBERS CALLPHONE NUMBERS FOR BOTH. CALLED ADMISSIONS TO UPDATE INFORMATION IN THE COMPUTER. INFORMATION IS NOW UPDATED.
[2018-10-14 20:50] VITALS: BP 128/54
--- NOTE | 2018-10-14 22:27 | NUR ---
RECEIVED IN BEDROOM. RESTING IN BED WITH EYES CLOSED. RESPONDS TO VOICE. CALM AND COOPERATIVE WITH CARE AND ASSESSMENT. REDIRECT AND REORIENT NEEDED. RESTING IN BED WITH EYES CLOSED AT THIS TIME. CONTINUE PLAN OF CARE
[2018-10-15 08:26] VITALS: BP 114/56
--- NOTE | 2018-10-15 10:00 | NUR ---
RECEIVED PT. IN DINING ROOM FOR B'FAST, ALERT, CALM, COOPERATIVE, PLEASANT. MEDS ADMIN PER ORDERS WITH COMPLETE MED COMPLIANCE NOTED. COOPERATIVE WITH PLAN OF CARE. CONT POC DIRECTED.
--- NOTE | 2018-10-15 13:42 | PN ---
PATIENT:NABIL KEYES MEDICAL RECORD: [id number] LOCATION:SAVANNA Fitzpatrick ADMISSION DATE: 09/27/18 PROGRESS NOTE DATE OF SERVICE: 10/14/2018 SUBJECTIVE: The patient's case was discussed with staff. She has no new complaint. OBJECTIVE: The patient is in good behavioral control. She is denying any thoughts of harming herself or others. She is severely impaired cognitively. ASSESSMENT: No change in diagnoses. PLAN: Brief supportive and educational interventions were made. Long-term prognosis is guarded. TRANSINT:[id number] Voice Confirmation ID: [id number] DOCUMENT ID: [id number] AUBREY RICO MD at 1342 CC: [id number] DICTATION DATE: 10/14/18 1117 LEACHER: 10/14/18 1158 ADM IN [place] [id number] [place] [address]
--- NOTE | 2018-10-15 20:46 | NUR ---
RECEIVED IN HALLWAY. SITTING IN A WHEELCHAIR OUTSIDE OF NURSES STATION. CALM AND COOPERATIVE WITH CARE AND ASSESSMENT. REDIRECT AND REORIENT NEEDED. RESTING IN BED WITH EYES CLOSED AT THIS TIME. CONTINUE PLAN OF CARE
[2018-10-15 21:25] VITALS: BP 138/53
[2018-10-16 08:00] VITALS: BP 132/48
--- NOTE | 2018-10-16 10:53 | NUR ---
NOEL SPOKE WITH PT'S DTR, OSMAN, TO ALERT OF NEEDING DISCHARGE PLANS. SW SENT REFERRAL AT PT'S POA'S REQUEST TO [facility]. [facility] DIDN'T HAVE ANY BEDS AVAILABLE AND [facility] HAS NOT CALLED BACK. NOEL STATED PT NEEDED A DEMENTIA UNIT. NANETTE BREWER STATED SHE WILL CONTACT A COLLEAGUE AND CALL UNIT BACK WITH A LIST.
--- NOTE | 2018-10-16 12:20 | PN ---
PATIENT:NABIL KEYES MEDICAL RECORD: [id number] LOCATION:SAVANNA Fitzpatrick ADMISSION DATE: 09/27/18 PROGRESS NOTE DATE OF SERVICE: 10/15/2018 SUBJECTIVE: The patient's case was discussed with staff. She has no new complaint. OBJECTIVE: The patient denies intent to harm herself or others. She is tolerating her medicines well. ASSESSMENT: No change in diagnoses. PLAN: Brief supportive and educational interventions were made. Long-term prognosis is guarded. TRANSINT:[id number] Voice Confirmation ID: [id number] DOCUMENT ID: [id number] AUBREY RICO MD at 1220 CC: [id number] DICTATION DATE: 10/15/18 1517 WIND TECHNICIAN: 10/15/18 1610 ADM IN [place] [id number]
--- NOTE | 2018-10-16 16:30 | NUR ---
DURING VISITATION PATIENT SAID HER BOTTOM HAS BEEN HURTING. PINK EGGCRATE WAS PLACED IN CHAIR.
[2018-10-16 21:02] VITALS: BP 128/38
--- NOTE | 2018-10-16 23:06 | NUR ---
RECEIVED IN HALLWAY. SITTING IN A RECLINER WITH PEERS AT HER SIDE. CALM AND COOPERATIVE WITH CARE AND ASSESSMENT. REDIRECT AND REORIENT NEEDED. RESTING IN BED WITH EYES CLOSED AT THIS TIME. CONTINUE PLAN OF CARE
[2018-10-17 08:30] VITALS: BP 119/50
--- NOTE | 2018-10-17 09:56 | PN ---
PATIENT:NABIL KEYES MEDICAL RECORD: [id number] LOCATION:SAVANNA Fitzpatrick ADMISSION DATE: 09/27/18 PROGRESS NOTE DATE OF SERVICE: 10/16/2018 SUBJECTIVE: The patient's case was discussed with staff. She has no new complaint. OBJECTIVE: The patient is in good behavioral control with limited insight about her condition. She tolerates her medicines well. ASSESSMENT: No change in diagnoses. PLAN: Brief supportive and educational interventions were made. Long-term prognosis is guarded. TRANSINT:[id number] Voice Confirmation ID: [id number] DOCUMENT ID: [id number] AUBREY RICO MD at 0956 CC: [id number] DICTATION DATE: 10/16/18 1224 HOOP MAKER HELPER MACHINE: 10/16/18 1241 ADM IN [address] [address]
--- NOTE | 2018-10-17 18:13 | NUR ---
ALERT BUT CONFUSED.COMPLIANT WITH STAFF AND MEDS.WILL CONTINUE WITH CURRENT PLAN OF CARE,MONITOR FOR CHANGES AND SAFETY.
[2018-10-17 20:46] VITALS: BP 121/49
--- NOTE | 2018-10-18 00:48 | NUR ---
PATIENT IS RESTING WELL AT THIS TIME, HOWEVER PATIENT REMAINS TO BE CONFUSED AND ARGUMENTATIVE AT TIMES. COMPLIANT WITH MEDS. WILL FOLLOW POC
[2018-10-18 08:30] VITALS: BP 97/54
--- NOTE | 2018-10-18 12:55 | NUR ---
TEAM TREATMENT REVIEW DIET: Mechanical soft w/ thin liquids PO INTAKE: 84% x 9 meals WT: 164.2 lbs on 10/14 BM: BM x 1 on 10/18 MEDS: KCl, MVI, Vit C, Milk of Mag LABS: No new labs since 09/27 GOALS: PO intake > 75% for meals, stable wt, BM q 3 days Will continue to monitor closely Clinical dietitian following
--- NOTE | 2018-10-18 14:18 | NUR ---
B) The patient is pleasant. She ambulated well with a walker and physical therapist assisting her today. She is confused as she keeps asking for her shoes and her Mama and Daddy. She will listen to redirection. I) Provide prescribed meds. R) The patient is compliant with meds. P) Continue POC.
--- NOTE | 2018-10-18 15:02 | PN ---
PATIENT:NABIL KEYES MEDICAL RECORD: [id number] LOCATION:SAVANNA Fitzpatrick ADMISSION DATE: 09/27/18 PROGRESS NOTE DATE OF SERVICE: 10/17/2018 SUBJECTIVE: The patient's case was discussed with staff. She has no new complaint. OBJECTIVE: The patient denies intent to harm herself or others. She is tolerating her medicines well. ASSESSMENT: No change in diagnoses. PLAN: The patient has been accepted by the [facility]. I anticipate she can be transitioned there soon, perhaps tomorrow or the next day if other arrangements are in order. I think she is at or near the maximum hospital benefit and I am optimistic she can reasonably be transitioned out of the hospital soon. TRANSINT:[id number] Voice Confirmation ID: [id number] DOCUMENT ID: [id number] AUBREY RICO MD at 1502 CC: [id number] DICTATION DATE: 10/17/18 1524 SHOE REPAIRER: 10/17/18 1801 ADM IN [place] [id number] [place] [id number]
[2018-10-18] MEDS ORDERED: ACETAMINOPHEN325 MG PO (15:27)
[2018-10-18] MEDS ORDERED: KLONOPIN0.5 MG PO (15:28)
[2018-10-18] MEDS ORDERED: CELEXA20 MG PO (15:28)
[2018-10-18] MEDS ORDERED: NAMENDA5 MG PO (15:28)
[2018-10-18] MEDS ORDERED: LINZESS145 MCG PO (15:28)
[2018-10-18] MEDS ORDERED: LIDODERM 5 %1 PATCH TRANSDERM (15:29)
[2018-10-18] MEDS ORDERED: REMOVE PATCH TD (15:29)
[2018-10-18] MEDS ORDERED: PREDNISONE10 MG PO (15:29)
[2018-10-18 20:48] VITALS: BP 123/42
--- NOTE | 2018-10-18 22:54 | NUR ---
B) Patient is alert and oriented to person, calm and cooperative this shift, patient is leaving in the morning to [facility] I) Administered scheduled medications as ordered, assisted with needs, R) Medication compliant, quiet and cooperative P) Continue plan of care.
[2018-10-19 08:51] VITALS: BP 132/70
--- NOTE | 2018-10-19 16:06 | PN ---
PATIENT:NABIL KEYES MEDICAL RECORD: [id number] LOCATION:SAVANNA Fitzpatrick ADMISSION DATE: 09/27/18 PROGRESS NOTE DATE OF SERVICE: 10/18/2018 SUBJECTIVE: The patient's case was discussed with staff. She has no new complaint. OBJECTIVE: The patient denies that she would seek to harm herself or others. She generally tolerates her medicines well. ASSESSMENT: No change in diagnoses. PLAN: The patient will be maintained on current medicines. Her long-term prognosis is guarded. Supportive and educational interventions were provided. I anticipate she can be transitioned out of the hospital into the [facility] tomorrow. TRANSINT:[id number] Voice Confirmation ID: [id number] DOCUMENT ID: [id number] AUBREY RICO MD at 1606 CC: [id number] DICTATION DATE: 10/18/18 1526 HOUSING ASSISTANT PROPERTY MANAGER: 10/18/18 1658 DIS IN 10/19/18 [facility] [address] [place] [address]
--- NOTE | 2018-10-24 15:25 | DS ---
PATIENT:NABIL KEYES :35 MEDICAL RECORD: [id number] DISCHARGE SUMMARY ADMISSION DATE: 09/27/18 DISCHARGE DATE: 10/19/18 IDENTIFYING DATA: The patient is an 83 years old and she is admitted to the hospital on a voluntary basis because of confusion and agitation. The patient had been at the senior care in [place] and recently had a subdural hematoma and was receiving physical therapy. She was fairly unsteady in her gait and she was confused, agitated and was referred here for treatment of those symptoms. The patient had poor understanding of the situation. She is very cooperative, but clearly severely impaired cognitively. HOSPITAL COURSE: The patient was admitted to the hospital and fully evaluated from both a medical, psychological, and social standpoint. She was clearly impaired and had behavior problems associated with that. Various combinations of medicines were tried with unacceptable results or side effects. Eventually, a reasonable balance between symptom improvement and sedation was achieved and she was transitioned out of the hospital to a long-term care setting. 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 AXIS II: None. AXIS III: Hypertension, congestive heart failure, diabetes, osteoarthritis, osteoporosis, pressure ulcer, hyperlipidemia, impaired mobility, subdural hematoma, traumatic brain injury, dyspnea, and pulmonary fibrosis. AXIS IV: Moderate. AXIS V: Global assessment of functioning was 30. PLAN: At the time of discharge, the patient was in good behavioral control with very limited insight about her situation. She was tolerating her medicines well. Her long-term prognosis is guarded. TRANSINT:[id number] Voice Confirmation ID: [id number] DOCUMENT ID: [id number] AUBREY RICO MD at 1525 CC: [id number] DICTATION DATE: 10/23/18 1600 SECURITY RISK ANALYST: 10/23/18 1829 DIS IN 10/19/18 [place] [address]
== END 2018-10-19 08:30 | DRG 884 ==
LOC: D.PSYCH 15:17
PROVIDERS: ADMIT Psychiatry & Neurology Psychiatry; ATTEND Psychiatry & Neurology Psychiatry
DX: F01.51 Vascular dementia, unspecified severity, with behavioral disturbance (principal); Z87.820 Personal history of traumatic brain injury; I11.0 Hypertensive heart disease with heart failure; I50.9 Heart failure, unspecified; E11.43 Type 2 diabetes mellitus with diabetic autonomic (poly)neuropathy; F32.9 Major depressive disorder, single episode, unspecified; M19.90 Unspecified osteoarthritis, unspecified site; L89.159 Pressure ulcer of sacral region, unspecified stage; E78.5 Hyperlipidemia, unspecified; M80.00XD Age-related osteoporosis with current pathological fracture, unspecified site, subsequent encounter for fracture with routine healing; Z74.09 Other reduced mobility; K59.01 Slow transit constipation; M25.511 Pain in right shoulder; W19.XXXA Unspecified fall, initial encounter

== ENCOUNTER 2018-11-06 06:07 | Emergency (ER) | payer MEDICARE ==
[~2018-11-06] VITALS: Ht 157.5 cm; Wt 72.7 kg
[~2018-11-06 06:07] MED LIST changes: +ACETAMINOPHEN325 MG PO; +ALBUTEROL SULF8.5 GM INH; +ASCORBIC ACID500 MG PO; +BUPROPION HCL75 MG PO; +CELEXA20 MG PO; +GLUCOTROL 5 MG T5 MG PO; +HYDROCODON-ACE1 EA10 PO; +K-DUR20 MEQ PO; +KEPPRA500 MG PO; +KLONOPIN0.5 MG PO; +LIDODERM 5 %1 PATCH TRANSDERM; +LINZESS145 MCG PO; +MULTI-DAY VITAM1 TAB PO; +NAMENDA5 MG PO; +PREDNISONE10 MG PO; +PREDNISONE5 MG PO; +REMOVE PATCH TD; +TRAZODONE HCL150 MG PO; +ULTRAM50 MG PO
[2018-11-06 06:08] VITALS: Ht 157.5 cm; Wt 72.7 kg
[2018-11-06] MEDS ORDERED: ACETAMINOPHEN500 M1 PO (09:06)
[2018-11-06] MEDS ORDERED: CYCLOBENZAPRINE10 MG PO (09:06)
[2018-11-06 11:22] VITALS: BP 146/54
== END 2018-11-06 11:23 | disposition home or self-care (01) ==
LOC: D.ER 06:07
DX: S01.81XA Laceration without foreign body of other part of head, initial encounter (principal); W19.XXXA Unspecified fall, initial encounter; F03.90 Unspecified dementia, unspecified severity, without behavioral disturbance, psychotic disturbance, mood disturbance, and anxiety; I10 Essential (primary) hypertension; E11.9 Type 2 diabetes mellitus without complications

== ENCOUNTER 2019-01-03 21:15 | Emergency (ER) | payer MEDICARE ==
[~2019-01-03] VITALS: Ht 157.5 cm; Wt 75.0 kg
[~2019-01-03 21:15] MED LIST changes: +ACETAMINOPHEN500 M1 PO; +CYCLOBENZAPRINE10 MG PO
[2019-01-03 21:17] VITALS: Ht 157.5 cm; Wt 75.0 kg
[2019-01-03] MEDS ORDERED: ZPAK PO (22:40)
[2019-01-04 00:01] VITALS: BP 116/53
== END 2019-01-04 00:12 ==
LOC: D.ER 21:15
DX: J01.90 Acute sinusitis, unspecified (principal); M54.2 Cervicalgia; W05.0XXA Fall from non-moving wheelchair, initial encounter; Y93.9 Activity, unspecified; Y92.9 Unspecified place or not applicable; E11.40 Type 2 diabetes mellitus with diabetic neuropathy, unspecified; I10 Essential (primary) hypertension; I50.9 Heart failure, unspecified; G30.9 Alzheimer's disease, unspecified; F02.80 Dementia in other diseases classified elsewhere, unspecified severity, without behavioral disturbance, psychotic disturbance, mood disturbance, and anxiety; M19.90 Unspecified osteoarthritis, unspecified site; M81.0 Age-related osteoporosis without current pathological fracture

== ENCOUNTER 2019-04-16 08:33 | Emergency (ER) | payer MEDICARE, OTHER ==
[~2019-04-16] VITALS: Ht 157.5 cm; Wt 68.2 kg
[~2019-04-16 08:33] MED LIST changes: +ZPAK PO
[2019-04-16 08:41] VITALS: Ht 157.5 cm; Wt 68.2 kg
[2019-04-16 09:18] LABS: BASOPHILS 0.3 % (0-2); EOSINOPHILS 7.4 % (0-7); HEMATOCRIT 42.4 % (36.0-48.0); HEMOGLOBIN 13.3 g/dL (12-16); IMMATURE GRANULOCYTES 0.1 % (0-5); LYMPHOCYTES 33.4 % (15-50); MCH 29.9 pg (26.0-34.0); MCHC 31.4 g/dL (31.0-37.0); MCV 95.3 fL (80.0-100.0); MEAN PLATELET VOLUME 9.8 fL (7.4-10.4); MONOCYTES 8.1 % (2-11); NEUTROPHILS 50.7 % (40-80); PLATELET COUNT 169 10x3/uL (130-400); RBC 4.45 10x6/uL (4.00-5.40); WBC 8.9 10x3/uL (4.8-10.8)
[2019-04-16 09:29] LABS: APTT 24.5 SECONDS (22.8-39.4)
[2019-04-16 09:30] LABS: CALC OSMOLALITY 288 mosm/kg (275-300); CALCIUM 8.7 mg/dL (8.5-10.1); CARBON DIOXIDE 34.6 mmol/L (21.0-32.0); CHLORIDE - SERUM 105 mmol/L (98-107); CREATININE - SERUM 0.9 mg/dL (0.6-1.3); GLUCOSE 99 mg/dL (74-106); POTASSIUM - SERUM 3.3 mmol/L (3.5-5.1); PROTIME 13.1 SECONDS (11.6-15.0); SODIUM 145 mmol/L (136-145); UREA NITROGEN 12 mg/dL (7-18); eGFR NON AFRICAN AMERICAN 63 mL/min (90-120)
[2019-04-16 09:45] LABS: ALBUMIN 3.2 g/dL (3.4-5.0); ALKALINE PHOSPHATASE 54 U/L (30-120); ALT (SGPT) 18 U/L (10-68); BILIRUBIN - TOTAL 0.52 mg/dL (0.2-1.3); CKMB 0.8 U/L (0.0-3.6); CREATINE KINASE 66 UL (21-215); PROTEIN - SERUM 6.6 g/dL (6.4-8.2); TROPONIN-I < 0.017 ng/mL (0.000-0.060)
[2019-04-16 09:51] LABS: MAGNESIUM - SERUM 2.1 mg/dL (1.8-2.4)
[2019-04-16] MEDS ORDERED: PENICILLIN V P500 MG PO (12:33)
[2019-04-16 14:58] VITALS: BP 146/70
== END 2019-04-16 13:47 ==
LOC: D.ER 08:33
PROVIDERS: Family Medicine
DX: R07.89 Other chest pain (principal); K02.9 Dental caries, unspecified; I10 Essential (primary) hypertension; E11.40 Type 2 diabetes mellitus with diabetic neuropathy, unspecified

== ENCOUNTER 2019-05-05 16:02 | Emergency (ER) | payer MEDICARE, OTHER ==
[~2019-05-05] VITALS: Ht 157.5 cm; Wt 75.5 kg
[~2019-05-05 16:02] MED LIST changes: +PENICILLIN V P500 MG PO
[2019-05-05 16:11] VITALS: Ht 157.5 cm; Wt 75.5 kg
[2019-05-05 21:23] VITALS: BP 158/85
== END 2019-05-05 21:23 ==
LOC: D.ER 16:02
DX: S09.90XA Unspecified injury of head, initial encounter (principal); S01.112A Laceration without foreign body of left eyelid and periocular area, initial encounter; W19.XXXA Unspecified fall, initial encounter; Y93.9 Activity, unspecified; Y92.9 Unspecified place or not applicable; I10 Essential (primary) hypertension; E11.40 Type 2 diabetes mellitus with diabetic neuropathy, unspecified; Z87.820 Personal history of traumatic brain injury; G30.9 Alzheimer's disease, unspecified; F02.80 Dementia in other diseases classified elsewhere, unspecified severity, without behavioral disturbance, psychotic disturbance, mood disturbance, and anxiety

== ENCOUNTER 2019-08-20 10:55 | Inpatient (IN) | payer MEDICARE, OTHER, MEDICAID ==
[~2019-08-20] VITALS: Ht 157.5 cm; Wt 69.9 kg
[2019-08-20] MEDS ORDERED: DONEPEZIL HCL10 MG PO (11:08)
[2019-08-20] MEDS ORDERED: ASCORBIC ACID500 MG PO (11:08)
[2019-08-20] MEDS ORDERED: VITAMIN D1000 UNIT PO (11:09)
[2019-08-20] MEDS ORDERED: ASPERCREME 5 OZ5 OZ TOPICAL (11:09)
[2019-08-20] MEDS ORDERED: KLONOPIN0.5 MG PO (11:11)
[2019-08-20] MEDS ORDERED: LINZESS145 MCG PO (11:11)
[2019-08-20] MEDS ORDERED: HYDROCODON-ACE1 EA10 PO (11:12)
[2019-08-20] MEDS ORDERED: NAMENDA5 MG PO (11:12)
[2019-08-20] MEDS ORDERED: PREDNISONE10 MG PO (11:13)
[2019-08-20] MEDS ORDERED: ZITHROMAX250 MG PO (11:14)
[2019-08-20] MEDS ORDERED: ZINC-220220 MG PO (11:15)
[2019-08-20 12:12] LABS: BASOPHILS 0 % (0-2); EOSINOPHILS 1.4 % (0-7); HEMATOCRIT 37.1 % (36.0-48.0); HEMOGLOBIN 11.1 g/dL (12-16); IMMATURE GRANULOCYTES 0.2 % (0-5); LYMPHOCYTES 8.4 % (15-50); MCH 29.7 pg (26.0-34.0); MCHC 29.9 g/dL (31.0-37.0); MCV 99.2 fL (80.0-100.0); MEAN PLATELET VOLUME 10.1 fL (7.4-10.4); MONOCYTES 10.7 % (2-11); NEUTROPHILS 79.3 % (40-80); PLATELET COUNT 179 10x3/uL (130-400); RBC 3.74 10x6/uL (4.00-5.40); RDW 13.9 % (11.5-14.5); WBC 8.8 10x3/uL (4.8-10.8)
[2019-08-20 12:25] LABS: CALC OSMOLALITY 297 mosm/kg (275-300); CALCIUM 8.5 mg/dL (8.5-10.1); CARBON DIOXIDE 34.9 mmol/L (21.0-32.0); CHLORIDE - SERUM 107 mmol/L (98-107); CREATININE - SERUM 0.9 mg/dL (0.6-1.3); GLUCOSE 135 mg/dL (74-106); POTASSIUM - SERUM 3.4 mmol/L (3.5-5.1); SODIUM 145 mmol/L (136-145); UREA NITROGEN 31 mg/dL (7-18); eGFR NON AFRICAN AMERICAN 63 mL/min (90-120)
[2019-08-20 12:26] LABS: APTT 24.7 SECONDS (22.8-39.4); INR 0.99 (0.85-1.17)
[2019-08-20 12:43] LABS: ALBUMIN 2.3 g/dL (3.4-5.0); ALKALINE PHOSPHATASE 61 U/L (30-120); ALT (SGPT) 12 U/L (10-68); BILIRUBIN - TOTAL 0.37 mg/dL (0.2-1.3); CKMB 0.2 U/L (0.0-3.6); CREATINE KINASE 43 UL (21-215); PROTEIN - SERUM 6.8 g/dL (6.4-8.2); TROPONIN-I < 0.017 ng/mL (0.000-0.060)
[2019-08-20 14:09] LABS: BILIRUBIN NEGATIVE (NEGATIVE); GLUCOSE NEGATIVE (NEGATIVE); KETONE NEGATIVE (NEGATIVE); NITRITE NEGATIVE (NEGATIVE); UROBILINOGEN 4 mg/dL (NORMAL)
--- NOTE | 2019-08-20 17:08 | NUR ---
PT ARRIVED VIA STRECHER. ASSISTED OVER TO BED X2. ORIENTED TO ROOM. CALL LIGHT WITHIN REACH. WILL ANSWER SOME YES OR NO QUESTIONS BUT MOST OF THEM SHE DOES NOT RESPOND TO. FSBS 147. DINNER TRAY DELIVERED. WHEN ASKED IF SHE NEEDED ASSISTANCE WITH IT, SHE STATED NO. BED IN LOWEST POSITION. WILL CONTINUE TO MONITOR.
[2019-08-20 18:08] VITALS: BP 115/67
--- NOTE | 2019-08-20 18:59 | NUR ---
ATTEMPTED TO GIVE PT HER LOVENOX SHOT, PT GRABBED MY ARM AND ASKED ME TO PLEASE NOT GIVE HER A SHOT. LOVENOX PLACED IN SHARPS. ATTEMPTED TO GET O2 SAT AND PT GRABBED MY ARM AND REFUSED TO LET GO. THEN GRABBED THE PULSE OX AND REFUSED TO LET GO. SHE STATED I WAS RUDE AND SHE DID NOT WANT ME TOUCHING HER. DR. LUNA AT BEDSIDE. WILL CONTINUE TO MONITOR.
[2019-08-20 19:45] VITALS: BP 112/45
[2019-08-20 23:28] VITALS: BP 112/48
[2019-08-21 04:15] VITALS: BP 98/42
--- NOTE | 2019-08-21 05:34 | NUR ---
PT REFUSED ALL MEDICATIONS THIS MORNING, BUT ALLOWED THIS NURSE TO CHECK HER FSBS. NO SINGS OF DISTRESS NOTED. CL IN REACH, BED IN LOWEST POSITION. PT DENIES ANY PAIN OR NEEDS AT THIS TIME.
--- NOTE | 2019-08-21 07:10 | NUR ---
REPORT RECEIVED FROM COATING MACHINE FEEDER AND PATIENT CARE ASSUMED. PATIENT LAYING IN BED ON BACK WITH EYES CLOSED AND BREATHING EVENLY. WILL CONTINUE WITH PLAN OF CARE. SR UPX 2 BED IN LOW POSITION AND CALL LIGHT IN REACH.
--- NOTE | 2019-08-21 08:30 | NUR ---
PATIENT LAYING IN BED ON BACK AWAKE, ALERT AND OREINTED TO NAME ONLY. PATIENT DENIES ANY NEEDS OR PAIN. ASSESSMENT COMPLETED. BLOOD DRAWN WITHOUT DIFFICULTY AND BREAKFAST TRAY SET UP. PATIENT REPOSITIONED TO EAT. WILL CONTINUE TO MONITOR. SR UP X 2 BED IN LOW POSITION AND CALL LIGHT IN REACH.
--- NOTE | 2019-08-21 10:00 | NUR ---
PATIENT DTR CALLED ON SPOKE. SPOKE WITH DR AT LENGTH TO SATISFACTION. DTR LEFT PHONE NUMBER FOR DR TO CALL WITH INFO. INFORMED DTR THAT I WOULD GIVE DR INFO BUT MAY NOT RECIEVE CALL. DTR VERBALIZED UNDERSTANDING. WILL CONTINUE WITH PLAN OF CARE. SR UP X 2 BED IN LOW POSITION AND CALL LIGHT IN REACH.
[2019-08-21 10:09] VITALS: BP 108/50
[2019-08-21 10:47] LABS: BASOPHILS 0 % (0-2); EOSINOPHILS 0 % (0-7); HEMATOCRIT 32.8 % (36.0-48.0); HEMOGLOBIN 9.6 g/dL (12-16); IMMATURE GRANULOCYTES 0.2 % (0-5); LYMPHOCYTES 7.2 % (15-50); MCH 29.3 pg (26.0-34.0); MCHC 29.3 g/dL (31.0-37.0); MEAN PLATELET VOLUME 10.3 fL (7.4-10.4); MONOCYTES 7.4 % (2-11); NEUTROPHILS 85.2 % (40-80); RBC 3.28 10x6/uL (4.00-5.40); RDW 13.9 % (11.5-14.5)
[2019-08-21 11:08] LABS: PLATELET COUNT 140 10x3/uL (130-400); WBC 4.9 10x3/uL (4.8-10.8)
[2019-08-21 13:04] VITALS: BMI 29.1
[2019-08-21 14:09] VITALS: BP 119/43
--- NOTE | 2019-08-21 15:57 | NUR ---
1553-JUNE CORDOBA RNADULT MANAGER I CALLED OSMAN KEYES (DAUGHTER OF NABIL KEYES)AND LEFT A VOICE MAIL THAT "GOING TO [facility] IS NOT A HIGHER LEVEL OF CARE, THERE IS NO NEW TREATMENT DIFFERENT FROM US, WE CAN CALL DOCTOR AND GET A D/C, THE FAMILY WILL HAVE TO ARRANGE FOR TRANSPORT, AND THE ISOLATION RULES WILL BE THE SAME HERE". I ASKED THAT IF SHE HAD ANY OTHER QUESTIONS SHE COULD CALL THE WAX POURER.
[2019-08-21 17:58] LABS: % SATURATION 18 % (15-55); IRON 17 ug/dl (35-150); TOTAL IRON BIND CAPACITY 94 ug/dl (260-445); UNSAT IRON BIND CAPACITY 77 ug/dl (150-375)
[2019-08-21 18:25] LABS: FERRITIN 317 ng/mL (3-244)
[2019-08-21 20:00] VITALS: BP 116/46
[2019-08-22 04:00] VITALS: BP 134/49
--- NOTE | 2019-08-22 07:10 | NUR ---
REPORT RECEIVED FROM LUBE MAN AND PATIENT CARE ASSUMED. PATIENT LAYING IN BED ON BACK WITH EYES CLOSED AND BRETHING EVENLY. WILL CONTINUE WITH PLAN OF CARE. SR UP X 2 BED IN LOW POSITION AND CALL LIGHT IN REACH.
[2019-08-22 07:42] LABS: CALCIUM 8.8 mg/dL (8.5-10.1); CARBON DIOXIDE 28.3 mmol/L (21.0-32.0); MAGNESIUM - SERUM 2.3 mg/dL (1.8-2.4); POTASSIUM - SERUM 3.3 mmol/L (3.5-5.1)
[2019-08-22 07:45] LABS: BASOPHILS 0.1 % (0-2); EOSINOPHILS 0 % (0-7); IMMATURE GRANULOCYTES 0.2 % (0-5); MCH 29.7 pg (26.0-34.0); MCHC 30.4 g/dL (31.0-37.0); MEAN PLATELET VOLUME 10.5 fL (7.4-10.4); MONOCYTES 10.6 % (2-11); NEUTROPHILS 80.1 % (40-80); PLATELET COUNT 159 10x3/uL (130-400); RDW 13.8 % (11.5-14.5)
[2019-08-22 07:47] LABS: HEMATOCRIT 41.4 % (36.0-48.0); HEMOGLOBIN 12.6 g/dL (12-16); MCV 97.6 fL (80.0-100.0); RBC 4.24 10x6/uL (4.00-5.40); WBC 10.3 10x3/uL (4.8-10.8)
[2019-08-22 09:25] VITALS: BP 124/44
--- NOTE | 2019-08-22 11:00 | NUR ---
AFTER MULTIPLE PIV ATTEMPTS, PIV NOT SUCCESSFUL. PER V/O DR BORREGO, DC ORDER FOR IV. ALL MEDS CHANGED TO PO OR IM.
[2019-08-22 12:58] VITALS: BP 133/52
--- NOTE | 2019-08-22 14:44 | NUR ---
PATIENT LAYING IN BED ON BACK WATCHING TV. PATIENT DENIES ANY NEEDS OR PAIN. WILL CONTINUE TO MONITOR. SR UP X 2 BED IN LOW POSITION AND CALL LIGHT IN REACH.
--- NOTE | 2019-08-22 18:25 | MORECARE ---
CASE MANAGEMENT DISCHARGE SUMMARY PATIENT: NABIL LOFTON UNIT: [id number] ADM DATE: 08/20/19 AGE: 84 : 35 SEX: F ROOM/BED: D.3647 AUTHOR: SELENADOC PHYSICIAN: REFERRING PHYSICIAN: NILDA VENEGAS MD DATE OF SERVICE: 08/22/19 Discharge Plan Patient Name: NABIL LOFTON Facility: [facility]:[place] : 1935 Planned Disposition: Anticipated Discharge Date: Discharge Date: Expected LOS: Initial Reviewer: [email or web address] Initial Review Date: 08/20/2019 Generated: 08/22/19 7:24 pm DCP- Discharge Planning Updated by [email or web address]: Tracy Aranda on 08/22/19 5:[address] Patient Name: NABIL LOFTON Admission Status: Elective Accout number: [id number] Admission Date: 08-20-2019 : 1935 Admission Diagnosis:COVID-19 Attending: JOSIE Current LOS: 2 Anticipated DC Date: Planned Disposition: Primary Insurance: MEDICARE A & B Discharge Planning Comments: CM unable to meet with patient r/t isolation guidelines to preserve PPE. CM called pt daughter Lofton to dc dc plan. She can be reached at : work [phone]. She prefers to be called at her work phone as to she does not get good cell service while in her office. CM educated patient luci on the CM role. CM verified patient's address, phone number, and emergency contact phone numbers. Patient lives at [facility] in the memory care unit in [facility]. At discharge patient plans to return to [facility] and feels this is a safe discharge. Dr Lofton expressed concerns about her mothers disease process and feels she will be taken care of and have provider continuity of care. CM provided update of medical condition, and the hospitals hand off procedures to ensure effective continuity of care. Dr Lofton expressed interest in getting the patient transferred to [facility]. Provided Dr Lofton with guidelines for transfer. Stated that this would be a lateral transfer. She would need an accepting physician to accept care, and provide expense for EMS transfer. Stated it against provider request to dc patient, if she chooses to have pt discharged she will need to do so AMA. Dr Lofton request medical providers to telephone her with the plan of care. Marianne FORBES has Dr Lofton's phone numbers and stated to CM she will have Dr Mas call. CM will continue to follow and will assist as needed with dc plans/needs. Complaint Investigator: Tracy Aranda Patient Name: NABIL LOFTON Page [phone] at 1825 All edits/amendments must be made on the electronic document DICTATION DATE: 08/22/191823 STOCKROOM HELPER: JORGE 08/22/191823 RPT#: [id number] DC DATE: STATUS: ADM IN [facility] [address] [place] [address] END OF REPORT
--- NOTE | 2019-08-22 19:00 | NUR ---
PT SITTING UP IN BED WATCHING TV. SHE IS ALERT BUT CONFUSED TO PLACE, TIME AND SITUATION. HER O2 SAT IS 94% ON 2L NC. VSS. BED ALARM IS ON, BED IS LOW AND CALL LIGHT IS WITHIN REACH.
[2019-08-22 21:16] VITALS: BP 136/60
--- NOTE | 2019-08-22 23:29 | NUR ---
O2 SAT 77% ON 2L. CALLED RT JOSELUIS, WHO CAME RIGHT AWAY. PT PLACED ON 10L NC AND O2 SAT CAME UP TO 95%.
[2019-08-23] VITALS (26 sets, daily range): BP systolic 93–150; BP diastolic 47–95; Ht 157.5 cm; Wt 69.9 kg
--- NOTE | 2019-08-23 03:51 | NUR ---
WENT IN TO CHECK ON PT AND SHE HAD HER GOWN AND HER OXYGEN OFF. O2 SAT WAS 82%. PLACED HER BACK ON O2 10L NC AND GOT HER DRESSED. SHE IS CONFUSED AND APPEARS ANXIOUS. KLONOPIN GIVEN PER PRN ORDER. BED IS LOW AND CALL LIGHT IS WITHIN REACH.
[2019-08-23 06:55] LABS: ANION GAP 9.4 mmol/L (8-16); CALCIUM 7.9 mg/dL (8.5-10.1); CARBON DIOXIDE 30.9 mmol/L (21.0-32.0); CREATININE - SERUM 0.8 mg/dL (0.6-1.3); MAGNESIUM - SERUM 1.9 mg/dL (1.8-2.4); POTASSIUM - SERUM 3.3 mmol/L (3.5-5.1)
[2019-08-23 07:07] LABS: BASOPHILS 0.1 % (0-2); EOSINOPHILS 0.1 % (0-7); HEMATOCRIT 37.4 % (36.0-48.0); HEMOGLOBIN 11.5 g/dL (12-16); IMMATURE GRANULOCYTES 0.5 % (0-5); LYMPHOCYTES 9.6 % (15-50); MCH 29.9 pg (26.0-34.0); MCHC 30.7 g/dL (31.0-37.0); MCV 97.4 fL (80.0-100.0); MEAN PLATELET VOLUME 10.7 fL (7.4-10.4); MONOCYTES 7.8 % (2-11); NEUTROPHILS 81.9 % (40-80); PLATELET COUNT 154 10x3/uL (130-400); RBC 3.84 10x6/uL (4.00-5.40); RDW 13.8 % (11.5-14.5); WBC 11.4 10x3/uL (4.8-10.8)
--- NOTE | 2019-08-23 09:21 | NUR ---
PT AT REST WHEN I ENTERED. WOKE TO MODERATE STIMULATION. WHILE TAKING VITAL SIGNS PT BEGAN DSATING TO 70'S AND 80'S. SHE IS ON 10.5 LITERS. WHEN PT ATTEMTPS ANYTHING OTHER TAHN REMAINING STILL SHE DSATS. DR. RESENDEZ HAS BEEN MADE AWARE HE STATES IF SHE CONTINUES TO DSAT WE WILL LOOK AT INTUBATINON POSSIBILITIES. WILL CNT TO MONITOR CLOSELY, LEFT ON V/S MACHINE. CL IN REACH, SRX2. BED ALARM ON ACGIVE WNL.
--- NOTE | 2019-08-23 12:52 | NUR ---
Nutrition Follow-up: Pt in droplet isolation; covid-19 +. Nursing reports pt not eating well and desats when doing anything. Daughter requests pt to be put on mech soft with ground meat; does not like Glucerna. Diet: Diabetic PO intake: 25-50% Wt: 160# (08/21); 159.3# (08/20); 163.9# (08/19) Last BM: 08/22 Labs noted: K+ 3.3, Glu 144, Ca 7.9 Meds noted: vitamin C, vitamin D, Linzess, Humalog, Protonix, electrolyte protocol -Added mech soft with ground meat to current diet order. -Encourage PO intake and honor food preferences within diet restrictions. -Monitor wt; noted daily wts ordered. -RD following.
--- NOTE | 2019-08-23 14:40 | NUR ---
RECEIVED PATIENT VIA BED FROM FLOOR ON HIGH FLOW NC AT 11 PM WITH SPO2 - 88%, BBS - CLEAR BUT DIMINISHED, PATIENT WITH DRY NON-PRODUCTIVE COUGH. CM - SR RATE 84, NO ECTOPY NOTED. RR - 36/MIN, O2 INCREASED TO 15 LPM VIA HIGH FLOW NC WITH SPO2 - 95% AND RR - 22. ATTEMPTED TO GAIN IV ACCESS WITH NO SUCCESS. PATIENT CONFUSED TO LOCATION ([facility]) UNABLE TO RECALL THE YEAR AND STATES SHE IS 27 YEARS OLD. POSITIONED IN BED. PATIENT WEIGHT VIA BEDSCALES IS 159.8, TEMP IS 100.3. PER DR. BORREGO TO OBTAIN SURGERY CONSULT FOR CVL PLACEMENT.
--- NOTE | 2019-08-23 15:18 | NUR ---
DR. HOU NOTIFIED OF CONSULT FOR CVL PLACEMENT.
--- NOTE | 2019-08-23 15:56 | NUR ---
PATIENT DESAT TO 84% ON HIGH FLOW NC AT 15 LPM, PLACED ON NRB AT 15 LPM WITH SPO2 INCREASED TO 98%, RR - 36, HR 86. CONSENT OBTAINED FROM DAUGHTER (OSMAN KEYES) VIA TELEPHONE AND SECOND VERIFIED BY SECOND RN AND PLACED ON CHART. UPDATE PROVIDED AND QUESTIONS ANSWERED. ADVISED THAT IT HAD BEEN AWHILE SINCE THEY DISCUSSED LIFE SUPPORT WITH HER MOTHER BUT IF IT COMES TO NEEDING BEING INTUBATED AND PLACED ON A VENTILATOR IT IS THEIR WISH THAT SHE BE INTUBATED.
--- NOTE | 2019-08-23 15:59 | NUR ---
PT SAT ON 14L HFNC 84% PLACED PT ON 15L NBR SAT INCREASED TO 98%
--- NOTE | 2019-08-23 16:08 | NUR ---
DR. RESENDEZ UPDATED BY RT ON PATIENT STATUS AND REQUESTS ANESTHESIA TO INTUBATE PATIENT.
--- NOTE | 2019-08-23 16:14 | NUR ---
CONTACTED PATEINTS DAUGHTER (OSMAN) AND ADVISED OF DETERIORATING RESPIRATORY STATUS AND NEED TO INTUBATE PATIENT AND PLACE ON VENTILATOR. ADVISED OF VISITATION RULES FOR COVID 19 PATIENTS.
--- NOTE | 2019-08-23 16:30 | NUR ---
DR. HOU AT ROOM TO PLACE CVL AND INTUBATE PATIENT. TIMEOUT CONDUCTED AND PROCEDURES AND PATIENT IDENTIFIED. DR. HOU PLACED CVL TO LEFT SUBCLAVIAN WITHOUT DIFFICULTY. PATIENT GIVEN 5 MG OF VERSED IVP WITH NS FLUSH AND 100 MG OF SUCCINYLCHOLINE IVP WITH NS FLUSH PER DR. HOU. PATIENT INTUBATED WITH 7.5 ETT, 23 CM AT TEETH WITH GOOD COLOR CHANGE ON CO2 DETECTOR AND BBS EQUAL. NGT PLACED TO LEFT NARE, PLACEMENT VERIFIED BY ASCULTATION. CXR OBTAINED FOR VERIFICATION OF CVL AND NGT. PATIENT TOLERATED PROCEDURE WELL.
--- NOTE | 2019-08-23 17:30 | NUR ---
SPOKE TO PATEINTS DAUGHTER AND UPDATED ON PROCEDURE AND PATIENT TOLERATED WELL. ANSWERED QUESTIONS.
--- NOTE | 2019-08-23 18:45 | NUR ---
PATIENT INCONTINENT STOOL AND URINE, CLEANED AND LINENS CHANGED. HOFFMAN CATH PLACED.
--- NOTE | 2019-08-23 19:00 | NUR ---
Recived report at closed door due to pt being COVID postive. she is intubated/sedated at this time. VSS, but RR rate is 30-34. Papa RN just increased diprivan IV PRN to help calm pt. will continue to monitor this. gallardo cathetor observed and draining, restraints are observed. extremites pink. left IJ CDI. will put on propper PPE and go in to do full-assessment. bed is low,side raislx2,call light within [facility]. will conintue to monitor
--- NOTE | 2019-08-23 20:28 | NUR ---
PT IS INTUBATED/SEDATED. RESTING MORE COMFORTABLE NOW THAT ON FENTYLE 25MCG/MIN. HER RR HAVE DECREASED FROM 34 TO 20. VSS. PROVIDED ORAL CARE AT THIS TIME AND TURNED TO LEFT SIDE FOR COMFORT. SCD'S WERE PUT ON AND TURNED ON BILAT LOWER EXTREMITES. PT HAS A TEMP OF 100.7F. TOOK ALL COVERS AND SHEETS OFF BY CONVECTION. PERFORMED FULL-ASSESSMENT AT THIS TIME AND DOC IN FLOW SHEET. IV FLOW SHEET HAS BEEN DOCUMNETED IN. HOFFMAN CATHEOTOR IS HANGING TO GRAVITY ON LEFT SIDE OF BED DRAINGIN YELLOW URINE. RESTRATINTS WERE OBSERVED WITH GOOD CAP REFILL TO BOTH UPPER EXTREMTIES. BED WAS LEFT LOW,SIDE RAISLX2,CALL LIGHT WITHIN REACH. BED ALARM IS ON. WILL CONITINUE TO MONITOR
--- NOTE | 2019-08-23 21:50 | NUR ---
PT IS RESTING INTUBATED/SEDATED. VSS. BED IS LOW,SIDE RAISLX2,CALL LIGHT WTIHIN REACH. WILL CONITNUE TO MONITOR
--- NOTE | 2019-08-23 23:00 | NUR ---
PT IS INTUBATED/ SEDATED AND CALM. DRAWING BLOOD TO RE-CHECK POTASSIUM. VSS. ORAL CARE PROVIDED, TURNED FOR COMFORT. BED IS LOW, SIDE RAILSX2, CALL LIGHT WITHIN REACH. RESTRAINTS OBSERVED
[2019-08-24] VITALS (23 sets, daily range): BP systolic 108–153; BP diastolic 52–78
--- NOTE | 2019-08-24 01:00 | NUR ---
PT IS RESTING IN BED CALM INTUABTED/SEDATED. VSS. BED IS LOW,SIDE RAISLX2,CALL LIGHT WTIHIN REACH. WILL CONITNUE TO MONITOR
--- NOTE | 2019-08-24 02:44 | NUR ---
PT IS RESTING IN BED INTUBATED/SEDATED. VSS. PPE PUT ON AND RE-ASSESSMENT DONE. ORAL CARE PROVIDED AND TURNED FOR COMFORT. PT TOLERATED WELL. BED IS LOW,SIDE RAISLX2, CALL LIGHT WTIHIN REACH WILL CONITNUE TO MONITOR
--- NOTE | 2019-08-24 04:10 | NUR ---
PT IS INTUBATED/SEDATED. VSS. PROVIDED FULL BED BATH AT THIS TIME WITH HCG SOLUTION. PT TOLERATED WELL. HOFFMAN CATHETOR CARE PROVIDED. SCD'S REMOVED AND PLACED BACK ON BILAT. MACHING STARTED. ORAL CARE PROVIDED AND TURNED TO LEFT SIDE WITH POSITIONING BLOCK. HEELS ARE BRIDGED OFF BED. PARTIAL LINEN CHANGE DONE. HOB IS AT 30DEGRESS. BED WAS LEFT LOW,SIDE RAISLX2,CALL LIGHT WITHIN REACH. BED ALARM ON. WILL CONINTUE TO MONITOR
[2019-08-24 04:48] LABS: BASOPHILS 0.1 % (0-2); EOSINOPHILS 0.9 % (0-7); HEMATOCRIT 43.6 % (36.0-48.0); HEMOGLOBIN 13.4 g/dL (12-16); IMMATURE GRANULOCYTES 0.5 % (0-5); LYMPHOCYTES 11.3 % (15-50); MCH 29.8 pg (26.0-34.0); MCHC 30.7 g/dL (31.0-37.0); MCV 96.9 fL (80.0-100.0); MEAN PLATELET VOLUME 10.8 fL (7.4-10.4); MONOCYTES 5.4 % (2-11); NEUTROPHILS 81.8 % (40-80); RDW 13.9 % (11.5-14.5)
[2019-08-24 04:51] LABS: PLATELET COUNT 120 10x3/uL (130-400); WBC 7.6 10x3/uL (4.8-10.8)
[2019-08-24 04:55] LABS: ANION GAP 8.6 mmol/L (8-16); CALCIUM 7.9 mg/dL (8.5-10.1); CARBON DIOXIDE 31.7 mmol/L (21.0-32.0); CREATININE - SERUM 0.8 mg/dL (0.6-1.3); MAGNESIUM - SERUM 1.9 mg/dL (1.8-2.4); POTASSIUM - SERUM 3.3 mmol/L (3.5-5.1)
--- NOTE | 2019-08-24 05:26 | NUR ---
PT POTASSIUM IS 3.3. POTASSIUM CHLORIDE 20 mEq is still infusing at this time per protocol. will re-draw 4 hours after it is finsihed infusing per lyte protocol.
--- NOTE | 2019-08-24 06:00 | NUR ---
PT IS RESTING IN BED CALM INTUBATED/SEDATED. VSS. CHANGED ALL TUBING TO IV PUMP. ORAL CARE DONE AND REPOSITIONED FOR COMFORT. BED IS LEFT LOW,SIDE RAISLX2,CALL LIGHT WITHIN REACH. WILL CONINTUE TO MONITOR
--- NOTE | 2019-08-24 07:00 | NUR ---
BEDSIDE REPORT RECEIVED. SHIFT ASSESSMENT COMPLETED PER FLOWSHEET, SEE FLOWSHEET FOR INFORMATION. NO ACUTE NEEDS OR DISTRESS NOTED AT THIS TIME, VSS. WILL CONT TO MONITOR.
--- NOTE | 2019-08-24 09:00 | NUR ---
PT INTUBATED AND SEDATED. NO ACUTE NEEDS OR DISTRESS NOTED AT THIS TIME. VSS. WILL CONT TO MONITOR.
--- NOTE | 2019-08-24 10:26 | NUR ---
SPOKE WITH DAUGHTER OSMAN, UPDATE GIVEN. WILL CONT TO MONITOR.
--- NOTE | 2019-08-24 11:00 | NUR ---
REASSESSMENT COMPLETED PER FLOWSHEET, SEE FLOWSHEET FOR INFORMATION. VSS. NO ACUTE NEEDS OR DISTRESS NOTED AT THIS TIME. WILL CONT TO MONITOR.
--- NOTE | 2019-08-24 13:00 | NUR ---
NO ACUTE NEEDS OR DISTRESS NOTED AT THIS TIME. PT INTUBATED AND SEDATED AT THIS TIME. VSS. WILL CONT TO MONITOR.
--- NOTE | 2019-08-24 17:40 | OP ---
PATIENT NAME: NABIL KEYES MEDICAL RECORD: [id number] :[birth year] LOCATION[facility] [id number] ADMISSION DATE:08/20/19 SURGEON: STEVE HOU MD DATE OF OPERATION: 08/23/2019 PREOPERATIVE DIAGNOSES: 1. Ventilatory failure requiring mechanical ventilation. 2. Lack of IV access. 3. COVID-19 pneumonia. 4. Inability to maintain adequate O2 saturation. POSTOPERATIVE DIAGNOSES: 1. Ventilatory failure requiring mechanical ventilation. 2. Lack of IV access. 3. COVID-19 pneumonia. 4. Inability to maintain adequate O2 saturation. PROCEDURE: 1. Insertion of neck triple lumen central venous catheter. 2. Insertion of endotracheal VAP 7.5 mm endotracheal tube. SURGEON: Steve Hou MD PUNCHBOARD STUFFER: None. BLOOD LOSS: Minimal. ANESTHESIA: Local for insertion of central line as well as IV Versed and paralytic in the intubation. The entire procedure was performed in the ICU. It was performed in the presence of a nurse nutrition worker. OPERATIVE COURSE: The neck was sterilely prepped and draped. The patient appears to have curvature of the neck to the right and I believe that this is likely chronic. For that reason, the left neck was sterilely prepped and draped. A local anesthetic was used to infiltrate the skin and subcutaneous tissue at the base of the left neck. The left internal jugular vein was percutaneously accessed in an antegrade fashion. Guidewire was passed easily. A small skin arabella was accomplished. A vessel dilator was used to dilate a subcutaneous tract. A 16-cm triple lumen central venous catheter was inserted to the hub. It was sutured in place times 3. All lumens flushed easily and aspirated dark, nonpulsatile blood. Attention was then turned to the endotracheal intubation. A 5 mg of IV Versed and 100 mg of IV succinylcholine were given. The patient was intubated on the first try with a Tompkins laryngoscope under direct laryngoscopic vision. A 7.5 mm VAP tube was used. It was fixated to 24 centimeter. Equal breath sounds bilaterally. There was good color change on the CO2 monitor. The results of the chest x-ray are pending from the radiologist. TRANSINT:[id number] Voice Confirmation ID: [id number] DOCUMENT ID: [id number] OPERATIVE REPORT [id number] NABIL KEYES ROBERT MD at 1740 CC: [id number] DICTATION DATE: 08/23/19 1735 MEAT PACKER: 08/24/19 0022 ADM IN [facility] [address] [place] [address]
--- NOTE | 2019-08-24 18:50 | NUR ---
RECIVED REPORT AT DOOR DUE TO PT BEING POSITIVE COVID AND IN DROPLET PERCAUTIONS. PT IS CALM INTUBATED/SEDATED. VSS. RESTRAINTS OBSERVED WITH PINK EXTREMITES BILAT. HOFFMAN CATHEOTOR TO GRAVITY AND DRAINING. BED IS LOW,SIDE RAILSX2,CALL LIGHT WIHTHIN REACH. WILL CONINTUE TO MONITOR
--- NOTE | 2019-08-24 20:20 | NUR ---
PT IS RESTINGIN BED CALM INTUABTED/SEDATED. VSS. GOWNED PROPPER PPE FOR DROPLET ISO. PROVIDED ORAL CARE, AND REPOSTIONED AT THIS TIME AND BRIDGED HEELS OFF BED. ADMINISTERED CRUSHED PO MEDS IN NGT TUBE. HEARD GURGALING OVER GASTRIC REGION WHEN PUSHING 20ML OF AIR. PT IS GETTING PULMICARE FEEDING STARTED AT 1800. WILL CHECK RESIDULES AFTER 6 HOURS. PT TOLERATED WELL. RESTRAINTS WERE OBSERVED. PT OPENS EYES SPONTANOUSLY. NO S/S OF PAIN. BED IS LOW,SIDE RAISLX2,TRIED TO ORIENT TO CALL LIGHT. BED ALARM ON. WILL CONITNUE TO MONITOR
--- NOTE | 2019-08-24 21:48 | NUR ---
TODD LE APN AT [id number]
--- NOTE | 2019-08-24 22:20 | NUR ---
TALK TO TO NOTIFY OF BRADYCARDIA. T.O TO STOP FENTYLE SEDATION FOR 15 MINUTES THEN START BACK AT 25 AND INCREASE PRN. T.O READ BACK CORRECT. STOPED FENTLYE SEDATION AT THIS TIME
--- NOTE | 2019-08-24 23:40 | NUR ---
PT IS RESTING IN BED CALM INTUBATED. SEDATION TURNED OFF AT THIS TIME PER . VSS. RE-ASSESSMENT PERFORMED AND DOC IN FLOWSHEET. ORAL CARE AND DONE AND TURNED FOR COMFORT. BED IS LOW,SIDE RAISLX2,CALL LIGHT WITHIN REACH. WILL CONTINUE TO MONITOR
[2019-08-25] VITALS (26 sets, daily range): BP systolic 105–154; BP diastolic 43–82
--- NOTE | 2019-08-25 00:44 | NUR ---
PT VENT WAS ALARM FROM ROOM. UPON CHECKING ON PT SHE HAS EYES OPEN AND PULLING ON BILAT WRIST RESTRAINTS AND IS BREATHING 40RR A MINUTE OVER VENT. HR IS 80 NS AND BP IS 150/70 AT THIS TIME. INCREASED FENTYLE TO 100 AT THIS TIME TO HELP CALM HER TO STOP FIGHTING THE VENT. SHE RESPONDS WITHIN ABOUT 10 MINUTES AND STOPS FIGHTING ETT TUBE AND RESTRAINTS AND RR ARE NOW 20-24 BREATH PER MINUTE. HR IS AT 60 NS. BED IS LOW,SIDE RAISLX2,CALL LIGHT WITHIN REACH. WILL CONTINUE TO MONITOR
--- NOTE | 2019-08-25 02:02 | NUR ---
PT IS RESTING IN BED CALM INTUABTED/SEDATED. VSS. BED IS LOW,SIDE RAISLX2,CALL LIGHT LINDSAYIN PAOLO. WILL CONTNUE TO [facility]
--- NOTE | 2019-08-25 03:40 | NUR ---
PT IS RESTING CALM INTUBATED/SEDATED. VSS. PPE PUT ON AND PERFORMED RE-ASSESSMET AT THIS TIME. TURNED FOR COMFORT AND PROVIDED ORAL CARE. BED IS LEFT LOW,SIDE RAILSX2,CALL LIGHT WITHIN REACH. WILL CONTINUE TO MONITOR
--- NOTE | 2019-08-25 04:15 | NUR ---
PT IS RESTING IN BED CALM INTUBATED/SEDATED. PPE FOR DROPLET PUT ON. TURNED PT FOR COMFORT. ORAL CARE PROVIDED. ATTEMPTED TO DRAW BLOOD FOR LABX2 WITHOUT SUCCESS. WILL CALL LAB TO NOTIFY THAT SOMEONE ELSE NEEDS TO TRY. PT TOLERATED WELL. VSS. I/O'S DONE. BED WAS LEFT LOW,SIDE RAISLX2,CALL LIGHT WITHIN REACH. WILL CONITNUE TO MONITOR
--- NOTE | 2019-08-25 06:20 | NUR ---
PT IS RESTING IN BED CALM INTUABTED/SEDATED. VSS. BED IS LOW,SIDE RAILSX2,CALL LIGHT WITHIN REACH. WILL CONTINUE TO MONITOR
--- NOTE | 2019-08-25 07:00 | NUR ---
BEDSIDE REPORT RECEIVED. SHIFT ASSESSMENT COMPLETED PER FLOWSHEET, SEE FLOWSHEET FOR INFORMATION. PT INTUBATED AND SEDATED. PT AWAKENS TO VOICE OR STIMULI. CAN NOT INCREASE SEDATION DUE TO SEVERE BRADYCARDIA. WILL CONT TO MONITOR.
[2019-08-25 07:18] LABS: BASOPHILS 0.2 % (0-2); EOSINOPHILS 0.1 % (0-7); HEMATOCRIT 37.6 % (36.0-48.0); HEMOGLOBIN 11.4 g/dL (12-16); IMMATURE GRANULOCYTES 0.3 % (0-5); LYMPHOCYTES 7.5 % (15-50); MCH 29.5 pg (26.0-34.0); MCHC 30.3 g/dL (31.0-37.0); MCV 97.2 fL (80.0-100.0); MONOCYTES 4.9 % (2-11); PLATELET COUNT 142 10x3/uL (130-400); RBC 3.87 10x6/uL (4.00-5.40); RDW 13.8 % (11.5-14.5); WBC 8.9 10x3/uL (4.8-10.8)
[2019-08-25 07:32] LABS: ALBUMIN 1.7 g/dL (3.4-5.0); ANION GAP 5.1 mmol/L (8-16); BILIRUBIN - DIRECT 0.2 mg/dL (0.00-0.30); BILIRUBIN - INDIRECT 0.14 mg/dL (0.00-1.00); BILIRUBIN - TOTAL 0.34 mg/dL (0.2-1.3); CALCIUM 8.1 mg/dL (8.5-10.1); CARBON DIOXIDE 33.2 mmol/L (21.0-32.0); CREATININE - SERUM 0.8 mg/dL (0.6-1.3); MAGNESIUM - SERUM 2.2 mg/dL (1.8-2.4); POTASSIUM - SERUM 4.3 mmol/L (3.5-5.1); PROTEIN - SERUM 5.8 g/dL (6.4-8.2)
--- NOTE | 2019-08-25 09:00 | NUR ---
AND AT BEDSIDE, NEW ORDERS RECEIVED. WILL CONT TO MONITOR.
--- NOTE | 2019-08-25 11:00 | NUR ---
REASSESSMENT COMPLETED PER FLOWSHEET, SEE FLOWSHEET FOR INFORMATION. PT INTUBATED AND SEDATED. NO ACUTE NEEDS OR DISTRESS NOTED AT THIS TIME. VSS. WILL CONT TO MONITOR.
--- NOTE | 2019-08-25 13:00 | NUR ---
PT INTUBATED AND SEDATED. NO ACUTE NEEDS OR DISTRESS NOTED AT THIS TIME. WILL CONT TO MONITOR.
--- NOTE | 2019-08-25 17:00 | NUR ---
PT INTUBATED AND SEDATED. NO AUCTE NEEDS OR DISTRESS NOTED AT THIS TIME. WILL CONT TO MONITOR.
--- NOTE | 2019-08-25 19:00 | NUR ---
SHIFT ASSESSMENT COMPLETE. VS STABLE. NO VISUAL CUES OF DISTRESS NOTED. SB ON THE MONITOR AT THIS TIME.
--- NOTE | 2019-08-25 21:00 | NUR ---
VS STABLE. NO VISUAL CUES OF DISTRESS NOTED. SB ON THE MONITOR AT THIS TIME.
--- NOTE | 2019-08-25 23:00 | NUR ---
VITAL SIGNS STABLE. NO DISTRESS NOTED. SB ON THE MONITOR.
[2019-08-26] VITALS (23 sets, daily range): BP systolic 103–139; BP diastolic 40–79
--- NOTE | 2019-08-26 01:00 | NUR ---
VITAL SIGNS STABLE. NO DISTRESS NOTED. SB ON THE MONITOR.
--- NOTE | 2019-08-26 03:00 | NUR ---
VITAL SIGNS STABLE. NO DISTRESS NOTED. SB ON THE MONITOR.
--- NOTE | 2019-08-26 05:00 | NUR ---
VITAL SIGNS STABLE. NO DISTRESS NOTED. WILL CONTINUE TO MONITOR.
[2019-08-26 06:58] LABS: BASOPHILS 0.1 % (0-2); EOSINOPHILS 0 % (0-7); HEMATOCRIT 37.5 % (36.0-48.0); HEMOGLOBIN 11.2 g/dL (12-16); IMMATURE GRANULOCYTES 0.4 % (0-5); LYMPHOCYTES 7.5 % (15-50); MCH 29.1 pg (26.0-34.0); MCHC 29.9 g/dL (31.0-37.0); MCV 97.4 fL (80.0-100.0); MEAN PLATELET VOLUME 11.8 fL (7.4-10.4); MONOCYTES 4.5 % (2-11); NEUTROPHILS 87.5 % (40-80); PLATELET COUNT 166 10x3/uL (130-400); RBC 3.85 10x6/uL (4.00-5.40); RDW 13.8 % (11.5-14.5)
--- NOTE | 2019-08-26 07:00 | NUR ---
REPORT RECIEVED FROM THE OFF GOING RN. PT DID PULL OUT HER OGT. PT SEDATED ON THE VENT. VSS AT THIS TIME. CALL LIGHT IN REACH. WILL CONT POC.
[2019-08-26 07:07] LABS: WBC 13.9 10x3/uL (4.8-10.8)
[2019-08-26 07:09] LABS: ALBUMIN 1.6 g/dL (3.4-5.0); ANION GAP 4.8 mmol/L (8-16); BILIRUBIN - TOTAL 0.19 mg/dL (0.2-1.3); CALCIUM 8.1 mg/dL (8.5-10.1); CARBON DIOXIDE 34.4 mmol/L (21.0-32.0); CREATININE - SERUM 0.8 mg/dL (0.6-1.3); POTASSIUM - SERUM 4.2 mmol/L (3.5-5.1); PROTEIN - SERUM 5.6 g/dL (6.4-8.2)
--- NOTE | 2019-08-26 08:15 | NUR ---
VITAL SIGNS STABLE. NO DISTRESS NOTED. SB ON THE MONITOR.
--- NOTE | 2019-08-26 09:00 | NUR ---
PT NOTED TO BE COUGHING. PT DEEP SUCTIONED AND BLOODY SECREATIONS NOTED. O2 DESATURATED. CALLED RT FOR ASSISTANCE. SHE SUCTIONED AND LEVAGED THE PT AND NOTED TO GET A BLOODY MUCUS PLUG. O2 INCREASED ABOVE 90%. OGT PLACED AND PLACEMENT CHECKED VIA A&A. CALL LIGHT IN REACH. WILL CONT POC.
--- NOTE | 2019-08-26 10:00 | NUR ---
PT REPOSITIONED FOR COMFORT. VSS. DAUGHTER CALLED AND PROVIDED HER CALL IN CODE. UPDATE GIVE. CALL LIGHT IN REACH. WILL CONT POC.
--- NOTE | 2019-08-26 11:00 | NUR ---
REASSEESSMENT COMPLETED. SEE FLOW SHEET. CALL LIGHT IN REACH. WILL CONT POC.
--- NOTE | 2019-08-26 11:12 | NUR ---
Nutrition follow-up: Pt intubated, sedated (no propofol) Pulmocare @ 35 ml/hr; pt pulled out OGT; replaced today and TF restarted Labs reviewed WT: 169# RDN following.
--- NOTE | 2019-08-26 13:51 | NUR ---
FULL BEDBATH GIVEN. SMALL AMOUNT JOF BM NOTED. SAMPLE COLLECTED AND SENT TO THE LAB. CALL LIGHT IN REACH. WILL CONT POC.
[2019-08-27] VITALS (17 sets, daily range): BP systolic 115–172; BP diastolic 43–67
[2019-08-27 07:31] LABS: BASOPHILS 0.1 % (0-2); EOSINOPHILS 0 % (0-7); HEMATOCRIT 37.6 % (36.0-48.0); HEMOGLOBIN 11.4 g/dL (12-16); IMMATURE GRANULOCYTES 0.3 % (0-5); MCH 29.2 pg (26.0-34.0); MCHC 30.3 g/dL (31.0-37.0); MCV 96.4 fL (80.0-100.0); MEAN PLATELET VOLUME 11.5 fL (7.4-10.4); MONOCYTES 7.4 % (2-11); NEUTROPHILS 84.2 % (40-80); PLATELET COUNT 158 10x3/uL (130-400); RDW 13.8 % (11.5-14.5)
[2019-08-27 07:42] LABS: ALBUMIN 1.8 g/dL (3.4-5.0); ANION GAP 6.2 mmol/L (8-16); BILIRUBIN - TOTAL 0.27 mg/dL (0.2-1.3); CALCIUM 7.9 mg/dL (8.5-10.1); CARBON DIOXIDE 33.7 mmol/L (21.0-32.0); CREATININE - SERUM 0.9 mg/dL (0.6-1.3); POTASSIUM - SERUM 3.9 mmol/L (3.5-5.1); PROTEIN - SERUM 5.6 g/dL (6.4-8.2)
[2019-08-27 07:48] LABS: WBC 10.4 10x3/uL (4.8-10.8)
--- NOTE | 2019-08-27 13:04 | NUR ---
0700 REPORT RECIEVED AND CARE ASSUMED OF PATIENT SEE FLOW SHEET FOR SHIFT ASSESMENT.. PT IS ORALLY INTUBATED AND SEDATED ON VENT WITH SOFT WRIDT RESTAINTS ON... 0800 FENTANYLL FOR SEDATION BOLUS GIVEN FOR RESTLESSNESS.. 0900 REMAINS WITHOUT CHANGES.. 1030DR DARIO IN TO SEE PATIENT UPDATE IS GIVEN.. 1100 FSBS DONE AND INSULIN COVER 1200 D[address]RIVAN DRIP INITIATED FOR PATIENTS CONTINUED RESTLESSNESS PER DR AGUDELO.. DR LINN IN TO SEE PATIENT AND UPDATE IS GIVEN...
--- NOTE | 2019-08-27 18:22 | NUR ---
1300 THERE IS NO CHANGES IN PT AT THIS TIME.. 1400 DAUGHTER CALLED AND UPDATE GIVEN AFTER RECIEVING THE [place]SC[place]DE 1500 PT REMAINS WITHOUT CHANGES.. 1600 I AND O DONE 1700 NO CHANGE 1800 INSULIN COVER..
[2019-08-28] VITALS (24 sets, daily range): BP systolic 16–175; BP diastolic 51–91
[2019-08-28 08:11] LABS: ALBUMIN 1.6 g/dL (3.4-5.0); ANION GAP 6.8 mmol/L (8-16); BILIRUBIN - TOTAL 0.5 mg/dL (0.2-1.3); CALCIUM 7.4 mg/dL (8.5-10.1); CARBON DIOXIDE 31.5 mmol/L (21.0-32.0); CREATININE - SERUM 0.8 mg/dL (0.6-1.3); PHOSPHOROUS 2.5 mg/dL (2.5-4.9)
[2019-08-28 08:12] LABS: POTASSIUM - SERUM 3.3 mmol/L (3.5-5.1)
[2019-08-28 08:13] LABS: BASOPHILS 0.1 % (0-2); EOSINOPHILS 0 % (0-7); HEMATOCRIT 33.2 % (36.0-48.0); HEMOGLOBIN 10.3 g/dL (12-16); IMMATURE GRANULOCYTES 0.4 % (0-5); LYMPHOCYTES 7.2 % (15-50); MCH 29.3 pg (26.0-34.0); MEAN PLATELET VOLUME 11.7 fL (7.4-10.4); MONOCYTES 7.4 % (2-11); NEUTROPHILS 84.9 % (40-80); PLATELET COUNT 144 10x3/uL (130-400); RBC 3.52 10x6/uL (4.00-5.40); RDW 13.7 % (11.5-14.5); WBC 10.8 10x3/uL (4.8-10.8)
[2019-08-28 08:20] LABS: MCV 94.3 fL (80.0-100.0)
--- NOTE | 2019-08-28 11:26 | NUR ---
Nutrition follow-up: Pt remains intubated, sedated Propofol started per Dr. Rivera Labs reviewed Pulmocare infusing @ 35 ml/hr Recommend increasing TF to goal rate of 50 ml/hr to better meet pts estimated energy needs RDN following.
[2019-08-29] VITALS (23 sets, daily range): BP systolic 106–168; BP diastolic 47–64
[2019-08-29 04:57] LABS: BASOPHILS 0.1 % (0-2); EOSINOPHILS 0 % (0-7); HEMATOCRIT 37.4 % (36.0-48.0); HEMOGLOBIN 11.5 g/dL (12-16); IMMATURE GRANULOCYTES 0.6 % (0-5); LYMPHOCYTES 8.4 % (15-50); MCHC 30.7 g/dL (31.0-37.0); MCV 94.2 fL (80.0-100.0); MONOCYTES 5.4 % (2-11); NEUTROPHILS 85.5 % (40-80); PLATELET COUNT 166 10x3/uL (130-400); RBC 3.97 10x6/uL (4.00-5.40); RDW 13.8 % (11.5-14.5)
[2019-08-29 05:26] LABS: ALBUMIN 1.7 g/dL (3.4-5.0); ANION GAP 5.9 mmol/L (8-16); BILIRUBIN - TOTAL 0.48 mg/dL (0.2-1.3); CALCIUM 7.8 mg/dL (8.5-10.1); CREATININE - SERUM 0.8 mg/dL (0.6-1.3); MAGNESIUM - SERUM 2.2 mg/dL (1.8-2.4); POTASSIUM - SERUM 3.9 mmol/L (3.5-5.1); PROTEIN - SERUM 5.4 g/dL (6.4-8.2)
[2019-08-29 05:28] LABS: PHOSPHOROUS 3.4 mg/dL (2.5-4.9)
--- NOTE | 2019-08-29 07:00 | NUR ---
ASSESSMENT COMPLETE PER FLOWSHEET. BATH GIVEN LINENS CHANGED. REPOSITIONED.
--- NOTE | 2019-08-29 10:00 | NUR ---
DR AGUDELO HERE UPDATED DAUGHTER.
--- NOTE | 2019-08-29 12:00 | NUR ---
CONTINUE TO MONITOR.
--- NOTE | 2019-08-29 13:24 | NUR ---
Nutrition follow-up: Pt with no BM and elevated residual; TF suctioned from lungs per RT. Recommend starting a motility agent to assist with TF tolerance. RDN following.
--- NOTE | 2019-08-29 14:30 | NUR ---
REPOSITIONED. MEDS GIVEN.
--- NOTE | 2019-08-29 16:30 | NUR ---
REPOSITIONED. I/O DONE. CONTINUE TO MONITOR.
[2019-08-30] VITALS (25 sets, daily range): BP systolic 93–147; BP diastolic 42–59
[2019-08-30 06:03] LABS: ALBUMIN 1.5 g/dL (3.4-5.0); ALKALINE PHOSPHATASE 53 U/L (30-120); BILIRUBIN - TOTAL 0.57 mg/dL (0.2-1.3); CALCIUM 7.5 mg/dL (8.5-10.1); CARBON DIOXIDE 32.9 mmol/L (21.0-32.0); CHLORIDE - SERUM 108 mmol/L (98-107); CREATININE - SERUM 0.7 mg/dL (0.6-1.3); MAGNESIUM - SERUM 2.1 mg/dL (1.8-2.4); PHOSPHOROUS 3.2 mg/dL (2.5-4.9); POTASSIUM - SERUM 3.4 mmol/L (3.5-5.1); SODIUM 145 mmol/L (136-145); UREA NITROGEN 19 mg/dL (7-18); eGFR NON AFRICAN AMERICAN 84 mL/min (90-120)
[2019-08-30 06:06] LABS: ALT (SGPT) 10 U/L (10-68); CALC OSMOLALITY 292 mosm/kg (275-300); GLUCOSE 136 mg/dL (74-106)
[2019-08-30 06:13] LABS: HEMATOCRIT 35.8 % (36.0-48.0); HEMOGLOBIN 11.3 g/dL (12-16); MCH 29.5 pg (26.0-34.0); MCHC 31.6 g/dL (31.0-37.0); MCV 93.5 fL (80.0-100.0); MEAN PLATELET VOLUME 11.9 fL (7.4-10.4); PLATELET COUNT 177 10x3/uL (130-400); RBC 3.83 10x6/uL (4.00-5.40); RDW 13.9 % (11.5-14.5)
[2019-08-30 06:17] LABS: WBC 15.5 10x3/uL (4.8-10.8)
[2019-08-30 06:34] LABS: LYMPHOCYTES 6 % (15-50); NEUTROPHILS 93 % (40-80)
[2019-08-30 06:35] LABS: PLATELET ESTIMATE NORMAL
--- NOTE | 2019-08-30 07:00 | NUR ---
PT REPORT RECEIVED FROM CONTROL DIRECTOR NURSE. NO ACUTE SIGNS OF DSITRESS NOTED. PT INTUBATED AND SEDATED. SHIFT ASSESSMENT COMPLETED. WILL CONTINUE TO MONITOR
--- NOTE | 2019-08-30 09:15 | NUR ---
CAD LIBRARIAN OUTSIDE ROOM. UPDATE GIVEN. WILL SPEAK TO DR AGUDELO ABOUT PT POSSIBLY ASPIRATING TUBE FEEDING. WILL DETERMINE IF HE WANTS TO HOLD OR TRY TUBE FEEDING AGAIN.
--- NOTE | 2019-08-30 11:02 | NUR ---
Nutrition follow-up: Pt remains NPO 2/2 elevated residuals 08/28/19. Intubated, sedated Labs reviewed WT: 161# Recommend restarting Pulmocare and add a motility agent due to elevated residuals and no BM charted RDN following.
--- NOTE | 2019-08-30 11:15 | NUR ---
IN PT ROOM. REASSESSMENT COMPLETED. NO SIGNS OF DISTRESS NOTED. WILL CONTINUE TO MONITOR
--- NOTE | 2019-08-30 13:00 | NUR ---
PT RESTING IN BED. ORAL CARE PROVIDED. TURNED. WILL CONTINUE TO MONITOR
--- NOTE | 2019-08-30 15:00 | NUR ---
PT REASSESSMENT COMPLETED. NO SIGNS OF DISTRESS NOTED. WILL CONTINUE TO MONITOR
--- NOTE | 2019-08-30 17:30 | NUR ---
PT RESTING IN BED. TURNED AND ORAL CARE PROVIDED. WILL CONTINUE TO MONITOR
--- NOTE | 2019-08-30 23:23 | NUR ---
RETURNED PHONE CALL TO PT DAUGHTEROSMAN. UPDATE PROVIDED PER REQUEST.
[2019-08-31] VITALS (24 sets, daily range): BP systolic 92–160; BP diastolic 36–58
[2019-08-31 05:21] LABS: BASOPHILS 0 % (0-2); EOSINOPHILS 0.1 % (0-7); HEMOGLOBIN 10.4 g/dL (12-16); IMMATURE GRANULOCYTES 0.3 % (0-5); MCH 28.9 pg (26.0-34.0); MCHC 30.6 g/dL (31.0-37.0); MCV 94.4 fL (80.0-100.0); MEAN PLATELET VOLUME 11.3 fL (7.4-10.4); MONOCYTES 5.5 % (2-11); NEUTROPHILS 89.1 % (40-80); PLATELET COUNT 168 10x3/uL (130-400); RDW 13.9 % (11.5-14.5); WBC 14.2 10x3/uL (4.8-10.8)
[2019-08-31 05:50] LABS: ALBUMIN 1.4 g/dL (3.4-5.0); ANION GAP 4.6 mmol/L (8-16); BILIRUBIN - TOTAL 0.45 mg/dL (0.2-1.3); CALCIUM 7.4 mg/dL (8.5-10.1); CARBON DIOXIDE 33.1 mmol/L (21.0-32.0); CREATININE - SERUM 0.8 mg/dL (0.6-1.3); POTASSIUM - SERUM 3.7 mmol/L (3.5-5.1); PROTEIN - SERUM 4.9 g/dL (6.4-8.2)
--- NOTE | 2019-08-31 06:06 | NUR ---
AM LABS REVIEWED, NOTHING TO TREAT PER ELECTROLYTE PROTOCOL.
--- NOTE | 2019-08-31 07:00 | NUR ---
0730 HEAD TO TOE COMPLETED. COURSE CRACKLES NOTED IN UPPER LUNG HTOMASON. SB NOTED ON MONITOR, PT INTUBATED AND SEDATED. PT WITHDRAWS FROM PAIN. EYES OPEN WITH VIGEROUS MOVEMENT. DURING ASSESSMENT PT HAD PUDDLE OF URINE ON MICHELLE AREA. UNKINKED HOFFMAN AND 500 CC CONCENTRATED URINE REMOVED. PROVIDED BATH. 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 MEASURES [id number]. APPLIED LAURA, AND BUTT PASTE. REPOSITIONED. 0930 REPOSITIONED,. DAUGHTER AT DOORWAY. ANSWERED QUESTIONS. REQUEST SHE BE CALLED WHEN DR DAVIS ARRIVES. STATES HE WILL MAKE HIS ROUNDS AND SEE PATIENTS BEFORE ANSWERING QUESTIONS SHE VERBALIZED UNDERSTANDING. 1030 DR DAVIS PROVIDING UPDATE WITH DAUGHTER OSMAN. OSMAN WISHES PT TO BE SEEN BY CARDIOLOGY. STATES THE RESEARCH SHE HAS READ STATES THAT COVID ATTACKS THE SA NODE. AND WOULD LIKE A APRICOT PACKER TO ASSESS HER HEART FUNCTION. 1100 REASSESSMENT COMPLETED. NO CHANGES NOTED. TITRATING PROPOFOL DOWN PER RAAS. 1300 REPOSITIONED. PROVIDED COMPLETE BEDBATH, AND WASHED HAIR. APPLIED BUTT PASTE ON COCCXY AND MEPLEX. NO CHANGES NOTED. [address] PEREZ AT BEDSIDE FOR CONSULT. PROVIDED CONDITION OF THE PATIENT. NO ORDERS AT THIS TIME. 1700 REPOSITIONED. VSS.
--- NOTE | 2019-08-31 19:00 | NUR ---
BEDSIDE REPORT RECEIVED. RECEIVE PATIENT IN BED SEDATED/INTUBATED. VSS
--- NOTE | 2019-08-31 20:00 | NUR ---
ASSESSMENT PERFORMED PER FLOW SHEE WITH NO ACUTE DISTRESS OBSERVED. MONITORS CONNECTED TO PATIENT WITH ALARMS SET. VSS. SINUS STEPHANIE ON MONITOR. ETT INTACT/SECURE/PATENT CONNECTED TO MECHANICAL VENT AT ORDERED SETTINGS. TURNED AND REPOSITIONED. ORAL CARE PERFORMED. OGT INTACT/SECURE/PATENT WITH PULMOCARE INFUSING, INCREASED TO 30ML/HR AT THIS TIME WITH H2O FLUSH SET AT 40ML/HR PER ORDER. PLACEMENT VERIFIED , RESIDUAL 50ML. PT OLIVIA WELL. WILL CONTINUE CURRENT POC
--- NOTE | 2019-08-31 22:00 | NUR ---
VANC TROUGH DRAWN PER L IJ CVL. OLIVIA WELL
[2019-09-01] VITALS (24 sets, daily range): BP systolic 106–184; BP diastolic 41–76
--- NOTE | 2019-09-01 | NUR ---
REASSESSMENT COMPLETED PER FLOW SHEET WITH NO ACUTE DISTRESS OBSERVED. VSS. SEDATED/INTUBATED. ETT INTACT/SECURE/PATENT. TURNED AND REPOSITIONED. ORAL CARE GIVEN. OLIVIA WELL. WILL CONTINUE CURRENT POC
--- NOTE | 2019-09-01 04:00 | NUR ---
SEDATED/INTUBATED. ETT INTACT/SECURE/PATENT [facility] AT ORDERED SETTINGS. VSS. REASSESSMENT COMPLETED PER FLOW SHEET WITH NO ACUTE DISTRESS OBSERVED. TURNED AND REPOSTIONED. ORAL CARE GIVEN.
--- NOTE | 2019-09-01 06:00 | NUR ---
CHG BATH AND OHFFMAN CATH CARE GIVEN. ORAL CARE GIVEN. TURNED AND REPOSITIONED. OLIVIA WELL. VSS.
[2019-09-01 06:22] LABS: THYROID STIMULATING HORMONE 0.57 uIU/mL (0.36-3.74)
[2019-09-01 06:24] LABS: TROPONIN-I < 0.017 ng/mL (0.000-0.060)
--- NOTE | 2019-09-01 07:00 | NUR ---
BEDSIDE REPORT RECEIVED. SHIFT ASSESSMENT COMPLETED PER FLOWSHEET, SEE FLOWSHEET FOR INFORMATION. PT INTUBATED AND SEDATED. NO ACUTE NEEDS OR DISTRESS NOTED AT THIS TIME. VSS. WILL CONT TO MONITOR.
[2019-09-01 09:55] LABS: HEMATOCRIT 29.4 % (36.0-48.0); HEMOGLOBIN 9.2 g/dL (12-16); LYMPHOCYTES 11.3 % (15-50); MCHC 31.3 g/dL (31.0-37.0); MCV 95.8 fL (80.0-100.0); MEAN PLATELET VOLUME 12.1 fL (7.4-10.4); NEUTROPHILS 82.3 % (40-80); PLATELET COUNT 136 10x3/uL (130-400); RBC 3.07 10x6/uL (4.00-5.40); RDW 13.3 % (11.5-14.5)
[2019-09-01 09:56] LABS: WBC 10.5 10x3/uL (4.8-10.8)
[2019-09-01 10:11] LABS: ALBUMIN 2.2 g/dL (3.4-5.0); BILIRUBIN - TOTAL 0.97 mg/dL (0.2-1.3); CALCIUM 7.1 mg/dL (8.5-10.1); CARBON DIOXIDE 29.3 mmol/L (21.0-32.0); CREATININE - SERUM 0.8 mg/dL (0.6-1.3); POTASSIUM - SERUM 3.3 mmol/L (3.5-5.1); PROTEIN - SERUM 4.9 g/dL (6.4-8.2)
--- NOTE | 2019-09-01 11:00 | NUR ---
REASSESSMENT COMPLETED PER FLOWSHEET, SEE FLOWSHEET FOR INFORMAITON. NO ACUTE NEEDS OR DISTRESS NOTED AT THIS TIME. VSS. AT BEDSIDE. WILL CONT TO MONITOR.
--- NOTE | 2019-09-01 13:00 | NUR ---
PT INTUABTED AND SEDATED. NO ACUTE NEEDS OR DISTRESS NOTED AT THIS TIME. VSS. WILL CONT TO MONITOR.
--- NOTE | 2019-09-01 15:00 | NUR ---
REASSESSMENT COMPLETED PER FLOWSHEET, SEE FLOWSHEET FOR INFORMATION. WILL CONT TO MONITOR.
--- NOTE | 2019-09-01 17:00 | NUR ---
PT INTUBATED AND SEDATED. CUFF LEAK NOTED, INSTILLED 10ML OF AIR INTO CUFF. NO LEAK NOTED. WILL CONT TO MONITOR.
[2019-09-02] VITALS (24 sets, daily range): BP systolic 160–196; BP diastolic 66–79
[2019-09-02 05:39] LABS: HEMATOCRIT 29.8 % (36.0-48.0); HEMOGLOBIN 9.3 g/dL (12-16); LYMPHOCYTES 6.5 % (15-50); MCH 29.7 pg (26.0-34.0); MCHC 31.2 g/dL (31.0-37.0); MCV 95.2 fL (80.0-100.0); MEAN PLATELET VOLUME 11.8 fL (7.4-10.4); NEUTROPHILS 87.3 % (40-80); PLATELET COUNT 134 10x3/uL (130-400); RBC 3.13 10x6/uL (4.00-5.40); RDW 13.4 % (11.5-14.5); WBC 9.3 10x3/uL (4.8-10.8)
[2019-09-02 06:04] LABS: CALC OSMOLALITY 302 mosm/kg (275-300); CALCIUM 7.9 mg/dL (8.5-10.1); CARBON DIOXIDE 29.4 mmol/L (21.0-32.0); CHLORIDE - SERUM 108 mmol/L (98-107); CREATININE - SERUM 0.7 mg/dL (0.6-1.3); MAGNESIUM - SERUM 2.6 mg/dL (1.8-2.4); PHOSPHOROUS 2.5 mg/dL (2.5-4.9); POTASSIUM - SERUM 4.1 mmol/L (3.5-5.1); SODIUM 142 mmol/L (136-145); UREA NITROGEN 23 mg/dL (7-18); eGFR NON AFRICAN AMERICAN 84 mL/min (90-120)
[2019-09-02 06:21] LABS: GLUCOSE 380 mg/dL (74-106)
--- NOTE | 2019-09-02 07:00 | NUR ---
PT REPORT RECEIVED FROM COILED COIL INSPECTOR NURSE. NO ACUTE SIGNS OF DISTRESS NOTED. WILL CONTINUE TO MONITOR
--- NOTE | 2019-09-02 09:00 | NUR ---
PT RESTING IN BED. NO ACUTE SIGNS OF DISTRESS NOTED. DR RESENDEZ AT BEDSIDE. WILL CONTINUE TO MONITOR
[2019-09-02 10:53] LABS: FERRITIN 606 ng/mL (3-244); TRIGLYCERIDE 105 mg/dL (30-200)
--- NOTE | 2019-09-02 10:53 | NUR ---
PAGED DR GRAMAJO. AWAITING CALL BACK.
--- NOTE | 2019-09-02 11:04 | NUR ---
SPOKE WITH PT FAMILY MEMBER. ANSWERED QUESTIONS.
--- NOTE | 2019-09-02 12:33 | NUR ---
Nutrition follow-up: Pt remains intubated, sedated with propofol Pulmocare @ 40 ml/hr via OGT Labs reviewed Wt: 165# No BM; colace started Tolerating TF at this time RDN following.
--- NOTE | 2019-09-02 13:00 | NUR ---
PT RESTING IN BED. NO COMPLAINTS NOTED. SWITCHED OVER TO CPAP ON VENT PER RT.
--- NOTE | 2019-09-02 15:00 | NUR ---
PT REASSESSMENT COMPLETED. PT SWITCHED BACK TO A/C ON VENT. WILL CONTINUE TO MONITOR
--- NOTE | 2019-09-02 17:33 | NUR ---
CALLED AND SPOKE WITH FAMILY. ANSWERED QUESTIONS.
[2019-09-03] VITALS (25 sets, daily range): BP systolic 115–198; BP diastolic 57–93
--- NOTE | 2019-09-03 07:00 | NUR ---
PT REPORT RECEIVED FROM BLUEPRINT READER NURSE. NO ACUTE SIGNS OF DSITRESS NOTED. SHIFT ASSESSMETN COMPLETED. WILL CONTINUE TO MONITOR
--- NOTE | 2019-09-03 09:00 | NUR ---
PT RESTING IN BED. NO COMPLAINTS NOTED AT THIS TIME. WILL CONTINUE TO MONITOR
--- NOTE | 2019-09-03 11:00 | NUR ---
REASSESSMETN COMPLETED. NO ACUTE SIGNS OF DISTRESS NOTED. WILL CONTINUE TO MONITOR
--- NOTE | 2019-09-03 13:25 | NUR ---
DR RESENDEZ WANTS PT SWITCHED BACK OVER TO A/C. DOES NOT WANT PT ON ANY SEDATION. SEDATION AND FLUIDS OFF. WILL CONTINUE TO MONITOR
--- NOTE | 2019-09-03 14:19 | NUR ---
PT WAS NOTED TO BE TACHYPNIC AND TACHYCARDIC WITH O2 SATS IN THE UPPER 80'S. NOTIFIED DR RESENDEZ WHO GAVE ORDERS TO START SEDATION BACK.
[2019-09-04] VITALS (24 sets, daily range): BP systolic 95–182; BP diastolic 51–88
--- NOTE | 2019-09-04 07:00 | NUR ---
PT REPORT RECEIVED FROM CYCLE REPAIRER NURSE. NO ACUTE SIGNS OF DISTRESS NOTED. PT RESTING IN BED. WILL CONTINUE TO MONITOR. SHIFT ASSESSMETN COMPLETED.
--- NOTE | 2019-09-04 08:30 | NUR ---
PT SWITCHED OVER TO CPAP MODE ON VENT. TOLERATING WELL. WILL CONTINUE TO MONITOR
[2019-09-04 10:30] LABS: HEMATOCRIT 34.6 % (36.0-48.0); HEMOGLOBIN 10.9 g/dL (12-16); LYMPHOCYTES 9.6 % (15-50); MCH 29.9 pg (26.0-34.0); MCHC 31.5 g/dL (31.0-37.0); MCV 94.8 fL (80.0-100.0); MEAN PLATELET VOLUME 10.5 fL (7.4-10.4); NEUTROPHILS 82.3 % (40-80); RBC 3.65 10x6/uL (4.00-5.40); RDW 13.1 % (11.5-14.5); WBC 14.5 10x3/uL (4.8-10.8)
[2019-09-04 10:36] LABS: PLATELET COUNT 200 10x3/uL (130-400)
[2019-09-04 10:41] LABS: ALBUMIN 3.7 g/dL (3.4-5.0); ANION GAP 5.1 mmol/L (8-16); BILIRUBIN - TOTAL 1.29 mg/dL (0.2-1.3); CALCIUM 8.4 mg/dL (8.5-10.1); CARBON DIOXIDE 36.4 mmol/L (21.0-32.0); CREATININE - SERUM 0.8 mg/dL (0.6-1.3); POTASSIUM - SERUM 3.5 mmol/L (3.5-5.1); PROTEIN - SERUM 6.5 g/dL (6.4-8.2)
--- NOTE | 2019-09-04 12:28 | NUR ---
Nutrition follow-up: NPO for CPAP trials today Labs reviewed RDN following.
[2019-09-05] VITALS (24 sets, daily range): BP systolic 119–171; BP diastolic 53–88
[2019-09-05 06:18] LABS: ALBUMIN 2.9 g/dL (3.4-5.0); ALKALINE PHOSPHATASE 42 U/L (30-120); BILIRUBIN - TOTAL 0.87 mg/dL (0.2-1.3); CALC OSMOLALITY 289 mosm/kg (275-300); CALCIUM 7.9 mg/dL (8.5-10.1); CARBON DIOXIDE 35.5 mmol/L (21.0-32.0); CHLORIDE - SERUM 104 mmol/L (98-107); CREATININE - SERUM 0.7 mg/dL (0.6-1.3); GLUCOSE 140 mg/dL (74-106); POTASSIUM - SERUM 3.4 mmol/L (3.5-5.1); PROTEIN - SERUM 5.5 g/dL (6.4-8.2); SODIUM 142 mmol/L (136-145); UREA NITROGEN 27 mg/dL (7-18); eGFR NON AFRICAN AMERICAN 84 mL/min (90-120)
[2019-09-05 06:19] LABS: ALT (SGPT) 13 U/L (10-68)
[2019-09-05 06:57] LABS: HEMATOCRIT 30.7 % (36.0-48.0); HEMOGLOBIN 9.7 g/dL (12-16); LYMPHOCYTES 13.7 % (15-50); MCHC 31.6 g/dL (31.0-37.0); MEAN PLATELET VOLUME 11.4 fL (7.4-10.4); NEUTROPHILS 76.2 % (40-80); PLATELET COUNT 160 10x3/uL (130-400); RBC 3.23 10x6/uL (4.00-5.40); RDW 12.9 % (11.5-14.5)
[2019-09-05 07:02] LABS: WBC 10.4 10x3/uL (4.8-10.8)
--- NOTE | 2019-09-05 10:15 | NUR ---
EXTUBATED PLACED ON 50 PERCENT BIPAP.
[2019-09-06] VITALS (24 sets, daily range): BP systolic 131–173; BP diastolic 57–84
[2019-09-06 06:32] LABS: HEMATOCRIT 33.7 % (36.0-48.0); HEMOGLOBIN 10.6 g/dL (12-16); LYMPHOCYTES 8.8 % (15-50); MCH 30.2 pg (26.0-34.0); MCHC 31.5 g/dL (31.0-37.0); MEAN PLATELET VOLUME 11.1 fL (7.4-10.4); PLATELET COUNT 184 10x3/uL (130-400); RBC 3.51 10x6/uL (4.00-5.40)
[2019-09-06 06:33] LABS: WBC 15.8 10x3/uL (4.8-10.8)
--- NOTE | 2019-09-06 07:30 | NUR ---
PT LAYING TO LEFT SIDE, RR EVEN AND UNLABORED ON BIPAP @ 50%. CALL LIGHT WITHIN REACH. BED IN LOWEST POSITION. PT WILL OPEN EYES AND TRACK; HOWEVER WILL NOT FOLLOW COMMANDS. HOFFMAN NOTED WITH DARK, GOLD URINE. PT POSITIONED ONTO RIGHT SIDE TO COMFORT. NO FACIAL GRIMACING OR GROANS NOTED. MEPILEX NOTED TO BOTTOM/COCCYX. WILL CONTINUE TO MONITOR.
[2019-09-06 08:23] LABS: ALKALINE PHOSPHATASE 46 U/L (30-120); ALT (SGPT) 13 U/L (10-68); BILIRUBIN - TOTAL 1.28 mg/dL (0.2-1.3); CALC OSMOLALITY 290 mosm/kg (275-300); CALCIUM 8.4 mg/dL (8.5-10.1); CARBON DIOXIDE 35.6 mmol/L (21.0-32.0); CHLORIDE - SERUM 103 mmol/L (98-107); GLUCOSE 102 mg/dL (74-106); POTASSIUM - SERUM 3.1 mmol/L (3.5-5.1); PROTEIN - SERUM 6.4 g/dL (6.4-8.2); SODIUM 143 mmol/L (136-145); UREA NITROGEN 29 mg/dL (7-18)
[2019-09-06 08:24] LABS: ALBUMIN 3.7 g/dL (3.4-5.0); CREATININE - SERUM 0.5 mg/dL (0.6-1.3); eGFR NON AFRICAN AMERICAN > 90 mL/min (90-120)
--- NOTE | 2019-09-06 09:11 | NUR ---
Nutrition follow-up: Pt extubated, on BIPAP at this time TF off Labs revierwed WT: 163# Recommend swallow eval and advance to oral diet if medically feasible. It diet unable to begin, recommend continuing TF. RDN following.
--- NOTE | 2019-09-06 10:52 | NUR ---
CALLED AND SPOKE WITH PT DAUGHTER (POA). UPDATED HER ON POC AND LAB RESULTS. ALL QUESTIONS ANSWERED. VERBALIZED AGREEANCE AND APPRECIATION.
--- NOTE | 2019-09-06 12:00 | NUR ---
TEMP 100.6 ORAL. TYLENOL SUPPOSITORY RECIEVED. MEPILEX CHANGED. CHUCKS REMOVED AND REPLACED. PT POSITIONED ONTO LEFT SIDE FOR COMFORT. NO DISTRESS NOTED. WILL CONTINUE TO MONITOR.
--- NOTE | 2019-09-06 14:00 | NUR ---
PT HAD NOT ATTEMPTED TO PULL ON RESTRAINTS. RESTRAINT CUFFS LEFT ON; HOWEVER WERE LEFT UNTIED TO SEE HOW PT WOULD DO. 1430- RESTRAINTS REMOVED FROM PT.
--- NOTE | 2019-09-06 17:30 | NUR ---
TEMP 100.6 F TEMPORAL. ROLLED PT ON SIDE TO GIVE SUPPOSITORY, PT HAD A SMALL BM. PT CLEANED AND LINENS CHANGED. SUPPOSITORY RECIEVED. ICE PACKS PLACED TO GROIN AND UNDER ARMS. PT POSITIONED ONTO LEFT SIDE TO COMFORT. WILL CONTINUE TO MONITOR.
--- NOTE | 2019-09-06 17:52 | NUR ---
I CONCUR WITH EVENT OPERATIONS MANAGER'S ASSESSMENT OF THIS PT
[2019-09-07] VITALS (24 sets, daily range): BP systolic 127–170; BP diastolic 61–86
--- NOTE | 2019-09-07 07:00 | NUR ---
BEDSIDE REPORT RECEIVED. SHIFT ASSESSMENT COMPLETED PER FLOWSHEET, SEE FLOWSHEET FOR INFORMATION. NO ACUTE NEEDS OR DIISTRESS NOTED AT THIS TIME. VSS. WILL CONT TO MONITOR.
--- NOTE | 2019-09-07 09:00 | NUR ---
PT RESTING IN BED WITH NO ACUTE NEEDS OR DISTRESS AT THIS TIME. VSS. WILL CONT TO MONITOR.
[2019-09-07 09:23] LABS: BASOPHILS 0.1 % (0-2); EOSINOPHILS 2.4 % (0-7); HEMATOCRIT 36.6 % (36.0-48.0); IMMATURE GRANULOCYTES 0.3 % (0-5); MCH 29.4 pg (26.0-34.0); MCHC 30.1 g/dL (31.0-37.0); MCV 97.9 fL (80.0-100.0); MEAN PLATELET VOLUME 10.7 fL (7.4-10.4); MONOCYTES 4.2 % (2-11); PLATELET COUNT 201 10x3/uL (130-400); RBC 3.74 10x6/uL (4.00-5.40); RDW 13.8 % (11.5-14.5)
[2019-09-07 09:50] LABS: ALBUMIN 3.6 g/dL (3.4-5.0); ALKALINE PHOSPHATASE 60 U/L (30-120); ALT (SGPT) 15 U/L (10-68); BILIRUBIN - TOTAL 1.19 mg/dL (0.2-1.3); CALC OSMOLALITY 293 mosm/kg (275-300); CALCIUM 8.6 mg/dL (8.5-10.1); CARBON DIOXIDE 36.3 mmol/L (21.0-32.0); CHLORIDE - SERUM 103 mmol/L (98-107); CREATININE - SERUM 0.6 mg/dL (0.6-1.3); GLUCOSE 120 mg/dL (74-106); POTASSIUM - SERUM 3.4 mmol/L (3.5-5.1); SODIUM 144 mmol/L (136-145); UREA NITROGEN 29 mg/dL (7-18); eGFR NON AFRICAN AMERICAN > 90 mL/min (90-120)
--- NOTE | 2019-09-07 11:00 | NUR ---
REASSESSMENT COMPLETED PER FLOWSHEET, SEE FLOWSHEET FOR INFORMATION. VSS. NO ACUTE NEEDS OR DISTRESS NOTED AT THIS TIME. WILL CONT TO MONITOR.
--- NOTE | 2019-09-07 13:00 | NUR ---
SPOKE WITH CHRISTIAN DAUGHTER, AND . BOTH DECIDED ON FAMILY MEETING AT 9A.M [place]. INFORMED FAMILY TO BE HERE AT 9 A.M [place] FOR A FAMILY MEETING. ALSO INFORMED CHARGE NURSE NICKOLAS OF FAMILY MEETING. WILL CONT TO MONITOR.
--- NOTE | 2019-09-07 15:00 | NUR ---
REASSESSMENT COMPLETED PER FLOWSHEET, SEE FLOWSHEET FOR INFORMATION. NO ACUTE NEEDS OR DISTRESS NOTED AT THIS TIME. WILL CONT TO MONITOR.
--- NOTE | 2019-09-07 17:00 | NUR ---
CVL BLOOD CULTURE DRAWN, ATTEMPTED 2 PERIPHERAL STICKS. NO LAB COLLECTED. WILL CONT TO MONITOR.
--- NOTE | 2019-09-07 19:10 | NUR ---
RECIVED REPORT. PT IS RESTING IN BED ON LEFT SIDE WITH EYE CLOSED. VSS. ISOLATION PROTOCOL OBSERVED. SHE SPONTANOUSLY OPENS EYE BUT JUST MUMBLES WHEN TRYING TO SPEAK. SHE IS UNABLE TO FOLLOW COMMANDS. SHE SHOWS NO S/S OF BEING IN PAIN. FULL ASSESSMENT DONE AND WILL [facility] ORAL CARE PROVIDED AND TURNED FOR COMFORT. HER HEALS ARE BRIDGED OFF BED. HOFFMAN CATHEOTOR OBSERVED BELOW BLADDER AND DRAINING. BED IS LOW,SIDE RAISLX2,CALL LIGHT WITHIN REACH. WILL CONITNUE TO MONITOR. BED ALARM IS ON
--- NOTE | 2019-09-07 21:47 | NUR ---
TALKED WITH , HE CALLED TO GET UPDATE. T.O TO GET CT OF THE HEAD WITHOUT CONTRAST NOW. T.O READ BACK CORRECT.
--- NOTE | 2019-09-07 22:18 | NUR ---
TOOK PT TO CT SCAN AND BACK TO ICU UNIT ROOM SAFELY IN BED. . HER VSS. SHE TOLERATED WELL C NO S/S OF DISTRESS OR PAIN. WE FOLLOWED PPE PROTOCOL. BED WAS LEFT LOW,SIDE RAISLX2,CALL LIGHT WITHIN REACH. WILL CONINTUE TO MONITOR.
--- NOTE | 2019-09-07 23:16 | NUR ---
PT IS RESTING IN BED WITH EYES CLOSED, VSS. RE-ASSESSMENT DONE AND WILL DOC IN FLOWSHEET. NO DISTRESS NOTED. BED IS LOW,SIDE RAISLX2,CALL LIGHT WITHIN REACH. WILL CONINTUE TO MONITOR
[2019-09-08] VITALS (20 sets, daily range): BP systolic 131–185; BP diastolic 60–86
--- NOTE | 2019-09-08 00:30 | NUR ---
PT IS RESTING IN BED WITH EYES OPEN, VSS. SHE HAD HER SECOND INCONTINENT BM, [facility] [employer]. ASSISTED WITH CLEANING HER BY [employer]. CHANGE COMPLETE LINENS AND PROVIDED CHG BATH, HOFFMAN CARE PROVIDED. TURNED FOR COMFORT. HEEL PROTECTORS ARE ON. SCD'S BACK ON FROM BATH AND ON. PT TOLERATED WELL. BED WAS LEFT LOW,SIDE RAISLX2,CALL LIGHT WITHIN REACH. WILL CONTINUE TO MONITOR BED ALARM ON
--- NOTE | 2019-09-08 02:40 | NUR ---
PT IS RESTING IN BED WITH EYES CLOSED. VSS. OPENS EYES WHEN SPOKEN TO. RE-ASSESSMENT PERFORMED. PROVIDED ORAL CARE AND TURNED PT FOR COMFORT TO RIGHT SIDE.HEEL PROTECTORS BILAT ON. SCD'S ARE ON BILAT. BED IS LOW,SIDE RAISLX2,CALL LIGHT WTIHIN REACH. BED ALARM IS ON. WILL CONINTUE TO [facility]
--- NOTE | 2019-09-08 04:01 | NUR ---
PT IS RESTING IN BED WITH EYES CLOSED. VSS. NO DISTRESS NOTED. TURNED FOR COMFORT. BED IS LOW,SIDE RAISLX2,CALL LIGHT WTIHIN REACH. BED ALARM ON
--- NOTE | 2019-09-08 06:41 | NUR ---
PT IS RESTING IN BED WITH EYES CLOSED, VSS. REPOSITIONED FOR COMFORT. HEEL PROTECTORS ON BILAT. NO DISTRESS NOTED. BED IS LOW,SIDE RIALSX2,CALL LIGHT WITHIN REACH. BED ALARM IS ON
--- NOTE | 2019-09-08 07:00 | NUR ---
BEDSIDE REPORT RECEIVED. SHIFT ASSESSMENT COMPLETED PER FLOWSHEET, SEE FLOWSHEET FOR INFORMATION. VSS. NO ACUTE NEEDS OR DISTRESS NOTED AT THIS TIME. WILL CONT TO MONITOR.
--- NOTE | 2019-09-08 09:00 | NUR ---
AT BEDSIDE WITH DAUGHTER CHRISTIAN. PT AGRUMENTATIVE WITH . GOING INTO GREAT DETAIL ON OVERALL CARE. VSS. WILL CONT TO MONITOR.
--- NOTE | 2019-09-08 09:44 | NUR ---
DARLEN DAUGHTER AGREES TO PEG PLACEMENT. SHE ALSO REQUEST FOR PT TO BE TRASNFERRED TO [facility]. ON THE PHONE WITH . WILL CONT TO MONITOR.
--- NOTE | 2019-09-08 10:55 | NUR ---
SPOKE WITH DAUGHTER CHRISTIAN ABOUT TRANSFERRING PT TO [facility], CHRISTIAN STATES SHE WANTS PT MOVED "BECAUSE THERE IS NO CONTINUITY OF CARE HERE, THERES A NEW DOCTOR EVERY WEEK, AND THEY ALL APPROACH HEALTHCARE DIFFERENT." REASSURED CHRISTIAN WE ARE GIVING THE BEST CARE WE CAN, AND THE DOCTORS ARE ALL EXCELLENT. SHE ALSO DEMANDED TO PUT PT ON HIGH FLOW OXYGEN AT 8-10L, AND I BOTH WENT INTO GREAT DETAIL WHY THAT IS NOT IDEAL. GRISELDACALVIN UNABLE TO UNDERSTAND. WILL CONT TO MONITOR.
--- NOTE | 2019-09-08 11:00 | NUR ---
REASSESSMENT COMPLETED PER FLOWSHEET, SEE FLOWSHEET FOR INFORMATION. NO ACUTE NEEDS OR DISTRESS NOTED AT THIS TIME. VSS. WILL CONT TO MONITOR.
--- NOTE | 2019-09-08 13:00 | NUR ---
PT RESTING IN BED WITH EYES CLOSED. NO ACUTE NEEDS OR DISTRESS NOTED AT THIS TIME. VSS. WILL CONT TO MONITOR.
--- NOTE | 2019-09-08 14:41 | NUR ---
SPOKE WITH [facility] ABOUT TRASNFER. APPARENTLY [facility] CANNOT HAVE BIPAPS ON THE FLOOR SO PT IS UNABLE TO TRANSFER, STILL WAITING FOR ICU BED. NOTIFIED DAUGHTER CHRISTIAN OF UPDATE. WILL CONT TO MONITOR.
--- NOTE | 2019-09-08 15:00 | NUR ---
REASSESSMENT COMPLETED PER FLOWSHEET, SEE FLOWSHEET FOR INFORMATION. NO ACUTE NEEDS OR DISTRESS NOTED AT THIS TIME. VSS. WILL CONT TO MONITOR.
--- NOTE | 2019-09-08 17:00 | NUR ---
PT RESTING IN BED NO ACUTE NEEDS OR DISTRESS NOTED AT THIS TIME. COMPLETED ORAL CARE ONCE AGAIN. VSS. WILL CONT TO MONITOR.
--- NOTE | 2019-09-08 18:28 | NUR ---
SPOKE WITH ADMISSIONS AT [facility], FACESHEET FAXED TO [facility] ADMISSIONS. WILL CONT TO MONITOR.
--- NOTE | 2019-09-08 19:30 | NUR ---
RECIEVED CARE OF PT, ASSESSMENT PER FLOWSHEET. PT LETHARGIC, NO VERBAL RESPONSE NOTED, WEAKNESS AND SWELLING PRESENT. HR SR ON CM, PPP, HOFFMAN CATH PATENT. POSITIONED FOR COMFORT SUPPORTED WITH WEDGES, HR SR ON CM, WILL MONITOR.
--- NOTE | 2019-09-08 21:10 | NUR ---
NO VISITORS PRESENT AT THIS TIME, HR SR ON CM, CONT POC.
[2019-09-09] VITALS (10 sets, daily range): BP systolic 114–171; BP diastolic 59–77
--- NOTE | 2019-09-09 01:20 | NUR ---
PT PLACED ON 50% BIPAP PER RT.
--- NOTE | 2019-09-09 03:50 | NUR ---
AM LAB DRAWN FROM CVL USING ASEPTIC TECHNIQUE, HR SR ON CM, VSS.
[2019-09-09 05:20] LABS: BASOPHILS 0.1 % (0-2); EOSINOPHILS 1.2 % (0-7); HEMATOCRIT 36.7 % (36.0-48.0); HEMOGLOBIN 11.2 g/dL (12-16); IMMATURE GRANULOCYTES 0.3 % (0-5); LYMPHOCYTES 6.5 % (15-50); MCHC 30.5 g/dL (31.0-37.0); MEAN PLATELET VOLUME 10.2 fL (7.4-10.4); MONOCYTES 5.1 % (2-11); NEUTROPHILS 86.8 % (40-80); PLATELET COUNT 184 10x3/uL (130-400); RBC 3.86 10x6/uL (4.00-5.40); RDW 13.9 % (11.5-14.5); WBC 15.3 10x3/uL (4.8-10.8)
[2019-09-09 05:28] LABS: MCV 95.1 fL (80.0-100.0)
--- NOTE | 2019-09-09 05:49 | NUR ---
PT RESTING IN BED WITH BIPAP IN PLACE AT 50% FIO2, HR SR, VSS.
[2019-09-09 06:00] LABS: ALBUMIN 3.1 g/dL (3.4-5.0); ALKALINE PHOSPHATASE 51 U/L (30-120); ALT (SGPT) 16 U/L (10-68); BILIRUBIN - TOTAL 0.92 mg/dL (0.2-1.3); CALC OSMOLALITY 283 mosm/kg (275-300); CALCIUM 8.4 mg/dL (8.5-10.1); CARBON DIOXIDE 36.1 mmol/L (21.0-32.0); CHLORIDE - SERUM 100 mmol/L (98-107); CREATININE - SERUM 0.5 mg/dL (0.6-1.3); GLUCOSE 128 mg/dL (74-106); MAGNESIUM - SERUM 2.4 mg/dL (1.8-2.4); POTASSIUM - SERUM 3.8 mmol/L (3.5-5.1); PROTEIN - SERUM 6.3 g/dL (6.4-8.2); SODIUM 138 mmol/L (136-145); THYROID STIMULATING HORMONE 0.85 uIU/mL (0.36-3.74); UREA NITROGEN 30 mg/dL (7-18); eGFR NON AFRICAN AMERICAN > 90 mL/min (90-120)
--- NOTE | 2019-09-09 07:00 | NUR ---
PT REPORT RECEIVED FROM CERTIFIED RESPIRATORY THERAPIST NURSE. NO ACUTE SIGNS OF DISTRESS NOTED. SHIFT ASSESSMENT COMPLETED. WILL CONTINUE TO MONITOR
--- NOTE | 2019-09-09 09:03 | NUR ---
PT RESTING IN BED. HAD BM. WILL CLEAN UP AND GIVE CHG BATH.
--- NOTE | 2019-09-09 11:37 | NUR ---
SPOKE WITH OSMAN, PT DAUGHTER, UPDATE GIVEN. ANSWERED QUESTIONS. WILL CONTINUE TO MONITOR
--- NOTE | 2019-09-09 12:25 | NUR ---
Nutrition follow-up: Pt extubated; speech eval reveals pt not safe for po intake at this time Possible PEG tube placed soon Labs reviewed WT: 155# [facility] transfer? DEEDEE mccormick.
--- NOTE | 2019-09-09 12:55 | NUR ---
DR AGUDELO AT BEDSIDE. UPDATE GIVEN. NO NEW ORDERS RECEIVED. WILL CONTINUE TO MONITOR
--- NOTE | 2019-09-09 13:30 | NUR ---
DR AGUDELO SPEAKING ON PHONE WITH PT DAUGHTER. WILL CONTINUE TO MONITOR
--- NOTE | 2019-09-09 14:54 | MORECARE ---
CASE MANAGEMENT DISCHARGE SUMMARY PATIENT: NABIL LOFTON UNIT: [id number] ADM DATE: 08/20/19 AGE: 84 : 35 SEX: F ROOM/BED: D.2314 AUTHOR: SELENA,DOC PHYSICIAN: REFERRING PHYSICIAN: NILDA VENEGAS MD DATE OF SERVICE: 09/09/19 Discharge Plan Patient Name: NABIL LOFTON Facility: [facility]:[place] : 1935 Planned Disposition: Anticipated Discharge Date: Discharge Date: Expected LOS: Initial Reviewer: [email or web address] Initial Review Date: 08/20/2019 Generated: 09/09/19 3:53 pm DCP- Discharge Planning Updated by [email or web address]: Tracy Aranda on 08/22/19 5:[address] Patient Name: NABIL LOFTON Admission Status: Elective Accout number: [id number] Admission Date: 08-20-2019 : 1935 Admission Diagnosis:COVID-19 Attending: JOSIE Current LOS: 2 Anticipated DC Date: Planned Disposition: Primary Insurance: MEDICARE A & B Discharge Planning Comments: CM unable to meet with patient r/t isolation guidelines to preserve PPE. CM called pt daughter Lofton to dc dc plan. She can be reached at : work [phone]. She prefers to be called at her work phone as to she does not get good cell service while in her office. CM educated patient luci on the CM role. CM verified patient's address, phone number, and emergency contact phone numbers. Patient lives at [facility] in the memory care unit [facility]. At discharge patient plans to return to [facility] and feels this is a safe discharge. Dr Lofton expressed concerns about her mothers disease process and feels she will be taken care of and have provider continuity of care. CM provided update of medical condition, and the hospitals hand off procedures to ensure effective continuity of care. Dr Lofton expressed interest in getting the patient transferred to [facility]. Provided Dr Lofton with guidelines for transfer. Stated that this would be a lateral transfer. She would need an accepting physician to accept care, and provide expense for EMS transfer. Stated it against provider request to dc patient, if she chooses to have pt discharged she will need to do so AMA. Dr Lofton request medical providers to telephone her with the plan of care. Marianne LEIDY has Dr Lofton's phone numbers and stated to CM she will have Dr Mas call. CM will continue to follow and will assist as needed with dc plans/needs. Fork Lift Truck Operator: Tracy Aranda External Providers External Provider: OTHER-OTHER Next Contact Date: Service Request Date: Service Type: Resolution: Reviewer: Comments: Last DP export: 08/22/19 5:25 pm Patient Name: NABIL LOFTON Page [phone] at 1454 All edits/amendments must be made on the electronic document DICTATION DATE: 09/09/191452 ASP WEB DEVELOPER: JORGE 09/09/191452 RPT#: [id number] DC DATE: STATUS: ADM IN [facility] [address] [place] [address] END OF REPORT
--- NOTE | 2019-09-09 16:35 | NUR ---
SPOKE WITH SUSHMA NICHOLAS AT [facility]. STATED PT IS STILL ON WAITING LIST FOR ICU. SHE CANNOT TRANSFER FROM OUR ICU TO [facility] FLOOR, IT WOULD BE A STEP DOWN. IF TRANSFER TO OUR FLOOR MUST STAY 24HRS BEFORE CAN TRANSFER TO [facility] FLOOR.
--- NOTE | 2019-09-09 16:54 | MORECARE ---
CASE MANAGEMENT DISCHARGE SUMMARY PATIENT: NABIL LOFTON UNIT: [id number] ADM DATE: 08/20/19 AGE: 84 : 35 SEX: F ROOM/BED: D.2314 AUTHOR: SELENA,DOC PHYSICIAN: REFERRING PHYSICIAN: NILDA VENEGAS MD DATE OF SERVICE: 09/09/19 Discharge Plan Patient Name: NABIL LOFTON Facility: [facility]:[place] : 1935 Planned Disposition: Anticipated Discharge Date: Discharge Date: Expected LOS: Initial Reviewer: [email or web address] Initial Review Date: 08/20/2019 Generated: 09/09/19 5:53 pm Comments DCP- Discharge Planning Updated by [email or web address]: Nora Jefferson on 09/09/19 3:[address] CM was notified that the patient's family was wanting transferred to [facility]. CM was told that patient was accepted yesterday but there was an issue because patient was placed on BIPAP.. Dr. Rivera stated that patient was to only be on BiPaP PRN and that she is not requiring it. CM contacted [facility] physicians call center for transfer and explained the situation. CM gave all the information to intake and to restart the process for transfer. CM gave contact numbers to Dr. Torres and unit. DCP- Discharge Planning Updated by [email or web address]: Tracy Aranda on 08/22/19 5:[address] Patient Name: NABIL LOFTON Admission Status: Elective Accout number: [id number] Admission Date: 08-20-2019 : 1935 Admission Diagnosis:COVID-19 Attending: JOSIE Current LOS: 2 Anticipated DC Date: Planned Disposition: Primary Insurance: MEDICARE A & B Discharge Planning Comments: CM unable to meet with patient r/t isolation guidelines to preserve PPE. CM called pt daughter Dr Lofton to dc dc plan. She can be reached at : work [phone]. She prefers to be called at her work phone as to she does not get good cell service while in her office. CM educated patient luci on the CM role. CM verified patient's address, phone number, and emergency contact phone numbers. Patient lives at [facility] in the memory care unit in [facility]. At discharge patient plans to return to [facility] and feels this is a safe discharge. Dr Lofton expressed concerns about her mothers disease process and feels she will be taken care of and have provider continuity of care. CM provided update of medical condition, and the hospitals hand off procedures to ensure effective continuity of care. Dr Lofton expressed interest in getting the patient transferred to [facility]. Provided Dr Lofton with guidelines for transfer. Stated that this would be a lateral transfer. She would need an accepting physician to accept care, and provide expense for EMS transfer. Stated it against provider request to dc patient, if she chooses to have pt discharged she will need to do so AMA. Dr Lofton request medical providers to telephone her with the plan of care. Marianne FORBES has Dr Lofton's phone numbers and stated to CM she will have Dr Mas call. CM will continue to follow and will assist as needed with dc plans/needs. Seal Skinner: Tracy Aranda Last DP export: 09/09/19 1:54 p Patient Name: NABIL LOFTON Page [phone] at 1654 All edits/amendments must be made on the electronic document DICTATION DATE: 09/09/191653 ENERGY SYSTEMS ENGINEER: JORGE 09/09/191653 RPT#: [id number] DC DATE: STATUS: ADM IN [facility] [address] [place] [address] END OF REPORT
--- NOTE | 2019-09-09 18:08 | NUR ---
PT RESTING IN BED. NO COMPLAINTS NOTED AT THIS TIME. WILL CONTINUE TO MONITOR
[2019-09-10] VITALS (10 sets, daily range): BP systolic 112–147; BP diastolic 54–70
[2019-09-10 05:43] LABS: CALC OSMOLALITY 281 mosm/kg (275-300); CALCIUM 8.6 mg/dL (8.5-10.1); CARBON DIOXIDE 35.2 mmol/L (21.0-32.0); CHLORIDE - SERUM 100 mmol/L (98-107); CREATININE - SERUM 0.6 mg/dL (0.6-1.3); GLUCOSE 133 mg/dL (74-106); POTASSIUM - SERUM 3.7 mmol/L (3.5-5.1); SODIUM 137 mmol/L (136-145); UREA NITROGEN 30 mg/dL (7-18); eGFR NON AFRICAN AMERICAN > 90 mL/min (90-120)
[2019-09-10 06:40] LABS: HEMATOCRIT 34.7 % (36.0-48.0); HEMOGLOBIN 10.7 g/dL (12-16); MCH 29.4 pg (26.0-34.0); MCHC 30.8 g/dL (31.0-37.0); MCV 95.3 fL (80.0-100.0); MEAN PLATELET VOLUME 10.8 fL (7.4-10.4); PLATELET COUNT 159 10x3/uL (130-400); RBC 3.64 10x6/uL (4.00-5.40); WBC 17.4 10x3/uL (4.8-10.8)
--- NOTE | 2019-09-10 07:00 | NUR ---
PT REPORT RECEIVED FROM THEOLOGY PROFESSOR NURSE. NO ACTUE SIGNS OF DISTRESS NOTED. SHIFT ASSESSMENT COMPLETED. WILL CONTINUE TO MONITOR
[2019-09-10 08:38] LABS: EOSINOPHILS 2 % (0-7); LYMPHOCYTES 7 % (15-50); NEUTROPHILS 90 % (40-80); PLATELET ESTIMATE NORMAL
[2019-09-10 14:09] LABS: C-REACTIVE PROTEIN 9.3 mg/dL (0.0-0.9)
--- NOTE | 2019-09-10 14:45 | NUR ---
CALLED KERLINE AT [facility]. RELAYED LAB VALUES FOR D-DIMER, FERRATIN, AND C-REACTIVE PROTEIN. STATED SHE WOULD LET THEIR DOCTOR KNOW AND THAT SHE WOULD CALL BACK. WILL CONTINUE TO MONITOR
--- NOTE | 2019-09-10 18:29 | MORECARE ---
CASE MANAGEMENT DISCHARGE SUMMARY PATIENT: NABIL LOFTON UNIT: [id number] ADM DATE: 08/20/19 AGE: 84 : 35 SEX: F ROOM/BED: D.2314 AUTHOR: SELENA,DOC PHYSICIAN: REFERRING PHYSICIAN: NILDA VENEGAS MD DATE OF SERVICE: 09/10/19 Discharge Plan Patient Name: NABIL LOFTON Facility: [facility]:[place] : 1935 Planned Disposition: Anticipated Discharge Date: Discharge Date: Expected LOS: Initial Reviewer: [email or web address] Initial Review Date: 08/20/2019 Generated: 09/10/19 7:28 pm Comments DCP- Discharge Planning Updated by [email or web address]: Nora Jefferson on 09/10/19 5:[address] CM was notified by nursing staff that patient had been accepted to [facility] and report had been called already and transportation set up. CM will continue to follow and assist as needed wit discharge planning / needs. DCP- Discharge Planning Updated by [email or web address]: Nora Jefferson on 09/09/19 3:[address] CM was notified that the patient's family was wanting transferred to [facility]. CM was told that patient was accepted yesterday but there was an issue because patient was placed on BIPAP.. Dr. Rivera stated that patient was to only be on BiPaP PRN and that she is not requiring it. CM contacted [facility] physicians call center for transfer and explained the situation. CM gave all the information to intake and to restart the process for transfer. CM gave contact numbers to Dr. Torres and unit. DCP- Discharge Planning Updated by [id number]: Tracy Aranda on 08/22/19 5:[address] Patient Name: NABIL LOFTON Admission Status: Elective Accout number: [id number] Admission Date: 08-20-2019 : 1935 Admission Diagnosis:COVID-19 Attending: JOSIE Current LOS: 2 Anticipated DC Date: Planned Disposition: Primary Insurance: MEDICARE A & B Discharge Planning Comments: CM unable to meet with patient r/t isolation guidelines to preserve PPE. CM called pt daughter Dr Lofton to dc dc plan. She can be reached at : work [phone]. She prefers to be called at her work phone as to she does not get good cell service while in her office. CM educated patient luci on the CM role. CM verified patient's address, phone number, and emergency contact phone numbers. Patient lives at [facility] in the memory care unit in a [facility] long-term bed. At discharge patient plans to return to [facility] and feels this is a safe discharge. Dr Lofton expressed concerns about her mothers disease process and feels she will be taken care of and have provider continuity of care. CM provided update of medical condition, and the hospitals hand off procedures to ensure effective continuity of care. Dr Lofton expressed interest in getting the patient transferred to [facility]. Provided Dr Lofton with guidelines for transfer. Stated that this would be a lateral transfer. She would need an accepting physician to accept care, and provide expense for EMS transfer. Stated it against provider request to dc patient, if she chooses to have pt discharged she will need to do so AMA. Dr Lofton request medical providers to telephone her with the plan of care. Marianne LEIDY has Dr Lofton's phone numbers and stated to CM she will have Dr Mas call. CM will continue to follow and will assist as needed with dc plans/needs. Plastic Joint Maker: Tracy Aranda Last DP export: 09/09/19 3:54 p Patient Name: NABIL LOFTON Page [phone] at 1829 All edits/amendments must be made on the electronic document DICTATION DATE: 09/10/191827 HEAD STILL OPERATOR: JORGE 09/10/191827 RPT#: [id number] DC DATE: STATUS: ADM IN [facility] [address] [place] [address] END OF REPORT
--- NOTE | 2019-09-10 18:50 | NUR ---
PT WHEELED OUT BY EMS. TOLERATING WELL. WILL CONTINUE TO MONITOR
--- NOTE | 2019-09-10 20:19 | MORECARE ---
CASE MANAGEMENT DISCHARGE SUMMARY PATIENT: NABIL LOFTON UNIT: [id number] ADM DATE: 08/20/19 AGE: 84 : 35 SEX: F ROOM/BED: D.2314 AUTHOR: SELENA,DOC PHYSICIAN: REFERRING PHYSICIAN: NILDA VENEGAS MD DATE OF SERVICE: 09/10/19 Discharge Plan Patient Name: NABIL LOFTON Facility: [facility]:[place] : 1935 Planned Disposition: Anticipated Discharge Date: 09/10/19 Discharge Date: 09/10/2019 Expected LOS: 21 Initial Reviewer: [email or web address] Initial Review Date: 08/20/2019 Generated: 09/10/19 9:18 pm Comments DCP- Discharge Planning Updated by [email or web address]: Nora Jefferson on 09/10/19 5:[address] CM was notified by nursing staff that patient had been accepted to [facility] and report had been called already and transportation set up. CM will continue to follow and assist as needed wit discharge planning / needs. DCP- Discharge Planning Updated by [email or web address]: Nora Jefferson on 09/09/19 3:[address] CM was notified that the patient's family was wanting transferred to [facility]. CM was told that patient was accepted yesterday but there was an issue because patient was placed on BIPAP.. Dr. Rivera stated that patient was to only be on BiPaP PRN and that she is not requiring it. CM contacted [facility] physicians call center for transfer and explained the situation. CM gave all the information to intake and to restart the process for transfer. CM gave contact numbers to Dr. Torres and unit. DCP- Discharge Planning Updated by [email or web address]: Tracy Aranda on 08/22/19 5:[address] Patient Name: NABIL LOFTON Admission Status: Elective Accout number: [id number] Admission Date: 08-20-2019 : 1935 Admission Diagnosis:COVID-19 Attending: JOSIE Current LOS: 2 Anticipated DC Date: Planned Disposition: Primary Insurance: MEDICARE A & B Discharge Planning Comments: CM unable to meet with patient r/t isolation guidelines to preserve PPE. CM called pt daughter Dr Lofton to dc dc plan. She can be reached at : work [phone]. She prefers to be called at her work phone as to she does not get good cell service while in her office. CM educated patient luci on the CM role. CM verified patient's address, phone number, and emergency contact phone numbers. Patient lives at [facility] in the memory care unit in a [facility]. At discharge patient plans to return to [facility] and feels this is a safe discharge. Dr Lofton expressed concerns about her mothers disease process and feels she will be taken care of and have provider continuity of care. CM provided update of medical condition, and the hospitals hand off procedures to ensure effective continuity of care. Dr Lofton expressed interest in getting the patient transferred to [facility]. Provided Dr Lofton with guidelines for transfer. Stated that this would be a lateral transfer. She would need an accepting physician to accept care, and provide expense for EMS transfer. Stated it against provider request to dc patient, if she chooses to have pt discharged she will need to do so AMA. Dr Lofton request medical providers to telephone her with the plan of care. Marianne LEIDY has Dr Lofton's phone numbers and stated to CM she will have Dr Mas call. CM will continue to follow and will assist as needed with dc plans/needs. Vegetable Worker: Tracy Rosa DP export: 09/10/19 5:29 p Patient Name: NABIL LOFTON Page [id number] at 2019 All edits/amendments must be made on the electronic document DICTATION DATE: 09/10/19 2019 CLOTH FINISHER: JORGE 09/10/19 2019 RPT#: [id number] DC DATE:09/10/19 STATUS: DIS IN [facility] [address] [place] [address] END OF REPORT
== END 2019-09-10 18:50 | disposition short-term general hospital (02) | DRG 207 ==
LOC: D.ER 10:55 → D.M2 16:25 → D.ICU 16:25
PROVIDERS: Emergency Medicine; Family Medicine; Internal Medicine Pulmonary Disease; ADMIT Family Medicine; ATTEND Family Medicine
PROC: 5A1955Z Respiratory Ventilation, Greater than 96 Consecutive Hours (ICD-10-PCS; principal; 2019-08-23)
PROC: 0BH17EZ Insertion of Endotracheal Airway into Trachea, Via Natural or Artificial Opening (ICD-10-PCS; 2019-08-23)
PROC: 05HN33Z Insertion of Infusion Device into Left Internal Jugular Vein, Percutaneous Approach (ICD-10-PCS; 2019-08-23)
DX: U07.1 COVID-19 (principal); J96.01 Acute respiratory failure with hypoxia; J18.9 Pneumonia, unspecified organism; J96.02 Acute respiratory failure with hypercapnia; D68.2 Hereditary deficiency of other clotting factors; J44.1 Chronic obstructive pulmonary disease with (acute) exacerbation; E86.0 Dehydration; E11.65 Type 2 diabetes mellitus with hyperglycemia; G30.9 Alzheimer's disease, unspecified; F02.80 Dementia in other diseases classified elsewhere, unspecified severity, without behavioral disturbance, psychotic disturbance, mood disturbance, and anxiety; E78.5 Hyperlipidemia, unspecified; I11.0 Hypertensive heart disease with heart failure; E87.6 Hypokalemia; R00.1 Bradycardia, unspecified; E78.00 Pure hypercholesterolemia, unspecified; D72.829 Elevated white blood cell count, unspecified; K58.9 Irritable bowel syndrome, unspecified; R53.81 Other malaise; D50.9 Iron deficiency anemia, unspecified; R79.89 Other specified abnormal findings of blood chemistry